=== PATIENT | female | born 1955 | race Caucasian/White ===

== ENCOUNTER 2020-07-25 13:52 | Outpatient (REF) | payer OTHER, SELFPAY ==
--- NOTE | 2020-07-25 | XR_ITS ---
EXAMINATION: 1. LEFT SHOULDER 2. LEFT HUMERUS CLINICAL INFORMATION: Shoulder pain. Arm pain. COMPARISON: None TECHNIQUE: 1. Left shoulder. 3 views 2. Left arm. 2 views FINDINGS: 1. Left shoulder. The glenohumeral joint and acromioclavicular joints are normal. No arthropathy. No soft tissue calcification. No fracture or dislocation. 2. Left arm. The humerus is normal. No fracture. No focal bone lesion or abnormal periosteal reaction. There is no soft tissue abnormality. IMPRESSION: 1. Left shoulder. Normal left shoulder. 2. Left arm. Normal left humerus.
== END 2020-07-25 13:53 | disposition home or self-care (01) ==
LOC: HO.HMGCX 13:52
PROVIDERS: PCP Orthopaedic Surgery; Visit Provider Nurse Practitioner Family
DX: M79.602 Pain in left arm (principal); M25.512 Pain in left shoulder
CPT/HCPCS: 73030; 73060

== ENCOUNTER 2020-08-01 16:12 | Outpatient (REF) | payer OTHER, SELFPAY ==
--- NOTE | 2020-08-01 16:38 | US_ITS ---
EXAMINATION: US VENOUS DUPLEX UPPER EXTREMITY, LEFT CLINICAL INFORMATION: Pain left arm. COMPARISON: None. TECHNIQUE: Routine grayscale, color and Doppler imaging of left upper extremity was performed. FINDINGS: There is normal color flow, Doppler visualized in left internal jugular, subclavian, axillary, brachial, basilic and cephalic veins. The radial vein is widely patent as well. The soft tissues are normal. IMPRESSION: No evidence of DVT left upper extremity.
== END 2020-08-01 16:13 | disposition home or self-care (01) ==
LOC: HO.US 16:12
PROVIDERS: PCP Orthopaedic Surgery; Visit Provider Nurse Practitioner Family
DX: M79.602 Pain in left arm (principal)
CPT/HCPCS: 93971

== ENCOUNTER 2020-08-16 14:00 | Outpatient (RCR) | payer OTHER, SELFPAY ==
--- NOTE | 2020-08-16 14:52 | MHC.PT.DC ---
[facility] [place] Office [place] Office [place] Office [address] Manny Canchola [address] [phone] F: [phone] F: [phone] F: [phone] F: [phone] Physical Therapy Discharge Report Diagnosis: Bicep tedinitis L Date of Surgery: NA Date of Evaluation: 06/05/20 Date of Discharge: 08/16/20 Treatments to Date: 11 Cancellations to Date: 0 No Shows to Date: 2 Discharge Status: Discharge Summary: Patient reporting that she feels better overall. She has some general achiness but otherwise demos improved tolerance of pain. She has a decent HEP to continue at home. I educated her to continue this to maintain results and follow up with MD as needed. Demos good ROM and strength but would benefit from continuing her HEP. DC to HEP at this time. Electronically signed by: Meera Romero PT Please sign and return to therapist. Thank you for your referral.
== END 2020-08-16 14:53 | disposition home or self-care (01) ==
LOC: HO.PTCHIC 14:00
PROVIDERS: PCP Internal Medicine; Visit Provider Nurse Practitioner Family
DX: M75.22 Bicipital tendinitis, left shoulder (principal)
CPT/HCPCS: 97110; 97140

== ENCOUNTER 2020-09-26 | Outpatient (REF) | payer OTHER, SELFPAY ==
--- NOTE | 2020-09-25 08:54 | HO.ANESPROP2 ---
HPI - Anesthesia Eval Consult details Narrative: 65yo F for Colonoscopy PMFSH Past Medical History Medical History Depression, major, recurrent Difficulty sleeping HLD (hyperlipidemia) Lipid disorder Tobacco abuse Family History Family History Father Myocardial infarction Mother Stomach cancer Son No problems noted. Daughter No problems noted. Daughter No problems noted. Surgical History Surgical History History of hysterectomy History of repair of laceration Hx of cholecystectomy Meds Allergies Allergy/AdvReac Type Severity Reaction Status Date / Time ciprofloxacin [From CIPRO] Allergy Intermediate HIVES Unverified 06/29/20 15:28 Home Medications Medication Instructions Recorded Confirmed Type cetirizine 5 mg-pseudoephedrine ER tab PO 07/08/20 09/13/20 History 120 mg tablet,extended release,12hr Exam Exam Date and Time: September 25, 2020 0854 Assessment and Plan Assessment Anesthesia Assessment: Chart Reviewed
[2020-09-25 12:26] VITALS: BMI 26.7
== END 2020-09-26 00:01 ==
LOC: CF
PROVIDERS: PCP Orthopaedic Surgery; Visit Provider Internal Medicine
DX: J44.9 Chronic obstructive pulmonary disease, unspecified (principal); F17.200 Nicotine dependence, unspecified, uncomplicated; Z79.899 Other long term (current) drug therapy
CPT/HCPCS: 99212

== ENCOUNTER → 2020-10-12 13:37 | Outpatient (BNVA) | payer OTHER, SELFPAY | PROVIDERS: Visit Provider Orthopaedic Surgery | DX: M75.52 Bursitis of left shoulder (principal) | CPT/HCPCS: 20610; 99202; J1100 ==

== ENCOUNTER 2020-10-17 13:43 | Outpatient (REF) | payer OTHER, SELFPAY ==
[2020-10-17 16:35] LABS: Basophils Absolute Auto 0.1 X10*3/uL (0.0-0.2); Basophils Percent Auto 0.6 % (0-2); Eosinophils Absolute Auto 0.2 X10*3/uL (0.0-0.4); Eosinophils Percent Auto 2.7 % (0-4); Hematocrit 41.5 % (37-47); Hemoglobin 13.5 g/dl (12.0-16.0); Imm Gran Abs Auto 0.02 X10*3/uL (0.00-0.03); Imm Gran Pct Auto 0.3 % (0.0-0.4); Lymphocytes Absolute Auto 3.4 X10*3/uL (1.2-4.9); Lymphocytes Percent Auto 43.6 % (20-40); Mean Corpuscular HGB Conc 32.5 g/dl (31.0-35.0); Mean Corpuscular Volume 95.4 fL (80-98); Mean Platelet Volume 11.5 fL (9.4-12.3); Monocytes Absolute Auto 0.5 X10*3/uL (0.1-1.2); Monocytes Percent Auto 6.7 % (2-11); Neutrophils Absolute Auto 3.6 X10*3/uL (2.0-8.3); Neutrophils Percent Auto 46.1 % (45-73); Platelet Count 287 X10*3/uL (160-400); Red Blood Count 4.35 X10*6/uL (4.20-5.50); Red Cell Distribution Width 12.2 % (11.0-16.0); White Blood Count 7.9 X10*3/uL (4.8-10.8)
[2020-10-17 16:38] LABS: MANUAL DIFF FLAG NO
[2020-10-17 16:55] LABS: Anion Gap 13 (12-20); Blood Urea Nitrogen 16 mg/dL (9-16); Calcium 8.9 mg/dL (8.4-10.2); Carbon Dioxide 28 mmol/L (22-29); Chloride 103 mmol/L (96-108); Cholesterol 203 mg/dL; Estimated Glomerular Filt Rate > 60; Glucose Fasting 83 mg/dL (60-99); HDL Cholesterol 73 mg/dL; LDL Cholesterol Calculated 111 mg/dl; Potassium 4.6 mmol/l (3.3-5.1); Sodium 139 mmol/L (135-145); Triglycerides 97 mg/dL
== END 2020-10-17 13:44 | disposition home or self-care (01) ==
LOC: HO.HMGCLDS 13:43
PROVIDERS: PCP Internal Medicine; Visit Provider Internal Medicine
DX: E78.9 Disorder of lipoprotein metabolism, unspecified (principal); F33.9 Major depressive disorder, recurrent, unspecified; G47.9 Sleep disorder, unspecified; Z72.0 Tobacco use
CPT/HCPCS: 36415; 80048; 80061; 85025

== ENCOUNTER 2020-12-12 14:13 | Outpatient (REF) | payer OTHER, SELFPAY | END 2020-12-12 14:14 | disposition home or self-care (01) | LOC: HO.HMGCLDS 14:13 | PROVIDERS: PCP Internal Medicine; Visit Provider Internal Medicine | DX: Z20.822 Contact with and (suspected) exposure to COVID-19 (principal) | CPT/HCPCS: 36415; U0003; U0005 ==

== ENCOUNTER → 2021-03-27 14:05 | Outpatient (BNVA) | payer OTHER, SELFPAY | PROVIDERS: PCP Internal Medicine; Visit Provider Internal Medicine | DX: J44.9 Chronic obstructive pulmonary disease, unspecified (principal); F17.200 Nicotine dependence, unspecified, uncomplicated | CPT/HCPCS: 99212 ==

== ENCOUNTER 2021-04-24 13:39 | Outpatient (REF) | payer OTHER, SELFPAY ==
--- NOTE | 2021-04-24 16:48 | PFT_ITS ---
FLOWS: FEV1 of 75% of predicted at 1.64 L. FVC 73% of predicted at 2.08 L. FEV1 to FVC ratio of 0.79. No bronchodilator response. LUNG VOLUMES: Total lung capacity 93% of predicted at 4.30 L. Residual volume 105% of predicted at 2.03 L. Slow vital capacity 84% of predicted at 2.27 L. Expiratory reserve volume 85% of predicted at 0.57 L. Diffusion capacity is mildly decreased. In comparison to pulmonary function test from May of 2019, FVC, FEV1, residual volume, slow vital capacity, and expiratory reserve volume have been without significant changes; total lung capacity has increased by 0.28 L; diffusion capacity has decreased by 2.94 mL/minute/mmHg. IMPRESSION: No obstructive or restrictive ventilatory defect. No bronchodilator response. Decreased diffusion capacity suggests emphysema. MD JERE Echevarria/MODL / [id number] MTDD
== END 2021-04-24 13:40 | disposition home or self-care (01) ==
LOC: HO.RESP 13:39
PROVIDERS: PCP Internal Medicine; Visit Provider Internal Medicine
DX: J44.9 Chronic obstructive pulmonary disease, unspecified (principal); F17.200 Nicotine dependence, unspecified, uncomplicated
CPT/HCPCS: 94060; 94727; 94729

== ENCOUNTER 2021-07-11 17:01 | Outpatient (REF) | payer OTHER, SELFPAY | END 2021-07-11 17:02 | disposition home or self-care (01) | LOC: HO.LNP 17:01 | PROVIDERS: Visit Provider Internal Medicine | DX: N30.90 Cystitis, unspecified without hematuria (principal) | CPT/HCPCS: 87086 ==

== ENCOUNTER 2021-08-20 12:42 | Outpatient (REF) | payer OTHER, SELFPAY ==
--- NOTE | ~2021-08-20 | MM_ITS ---
EXAMINATION: MM SCREENING DIGITAL BREAST TOMOSYNTHESIS, BILATERAL CLINICAL INFORMATION: Screening. Asymptomatic. The lifetime risk of breast cancer based on the Tyrer-Cuzick Model is 8%. COMPARISON: Mammography: 11/10/2019, 11/04/2018, 10/10/2017 TECHNIQUE: Digital breast tomosynthesis is performed in both the craniocaudal and mediolateral oblique views along with computer-aided detection (CAD). Synthesized 2D images are generated from the tomosynthesis. Additional left MLO view is provided. FINDINGS: There are scattered areas of fibroglandular density (ACR BI-RADS breast composition Category b). There are no significant masses, abnormal calcifications, or other abnormalities. Parenchymal pattern is similar to prior studies. No developing density. No significant changes. MM/MM tomosynthesis screening BI IMPRESSION: No mammographic evidence of malignancy. ASSESSMENT: BI-RADS 1: Negative RECOMMENDATION: Routine annual mammography screening. This patient's information was entered into a reminder system with a target due date for their next mammogram.
== END 2021-08-20 12:43 | disposition home or self-care (01) ==
LOC: HO.MAMMO 12:42
PROVIDERS: Visit Provider Internal Medicine
DX: Z12.31 Encounter for screening mammogram for malignant neoplasm of breast (principal)
CPT/HCPCS: 77063; 77067

== ENCOUNTER → 2021-09-24 13:58 | Outpatient (BNVA) | payer OTHER, SELFPAY | PROVIDERS: PCP Internal Medicine; Visit Provider Internal Medicine | DX: J44.9 Chronic obstructive pulmonary disease, unspecified (principal); F17.210 Nicotine dependence, cigarettes, uncomplicated | CPT/HCPCS: 99212 ==

== ENCOUNTER 2021-10-30 10:27 | Outpatient (REF) | payer OTHER, SELFPAY ==
--- NOTE | ~2021-10-30 | CT_ITS ---
EXAMINATION: CT CHEST SCREENING CLINICAL INFORMATION: Current smoker. 49 pack year history. COMPARISON: Previous chest CT most recent March 2020 TECHNIQUE: Multidetector volumetric CT imaging of the chest is performed without contrast using low dose technique. Additional 2D coronal and sagittal reformatted images and axial 3D maximum intensity projection (MIP) images are generated on the CT workstation. This CT examination was performed using dose optimization techniques as appropriate, variously including the following: *Automated exposure control *Adjustment of mA and/or kV according to patient size (this includes techniques or standardized protocols for targeted exams where dose is matched to indication/reason for exam; i.e. extremities or head) *Use of iterative reconstruction technique DLP: 50 mGy-cm FINDINGS: LUNGS: There is evidence of emphysema. There are several new semisolid or heterogeneous right upper lobe nodules measuring 3 mm axial image 92, axial image 105, axial image 110, axial image 139 series 5. There is a 3 mm peripheral or subpleural right upper lobe nodule axial image 111 series 5. The lungs are otherwise clear. MEDIASTINUM: There is mild coronary artery calcification. The mediastinum is otherwise normal. PLEURA: There is no pleural effusion. No pleural mass or thickening. AXILLA: No lymphadenopathy. UPPER ABDOMEN: The gallbladder has been removed. The liver may be low in attenuation. OSSEOUS STRUCTURES: Unremarkable. CT/CT lung screening IMPRESSION: Mild emphysema. Several new heterogeneous or semisolid 3 mm right upper lobe nodules. Represent an infectious or less laboratory process stable 3 mm peripheral right upper lobe nodule. Mild coronary artery calcification. ASSESSMENT: Lung-RADS category 2: Benign RECOMMENDATION: Annual low-dose chest CT follow-up recommended.
== END 2021-10-30 10:28 | disposition home or self-care (01) ==
LOC: HO.CT 10:27
PROVIDERS: Visit Provider Physician Assistant Medical
DX: Z12.2 Encounter for screening for malignant neoplasm of respiratory organs (principal); F17.210 Nicotine dependence, cigarettes, uncomplicated
CPT/HCPCS: 71271

== ENCOUNTER 2021-11-16 12:54 | Outpatient (REF) | payer OTHER, SELFPAY ==
[2021-11-16 13:46] LABS: MANUAL DIFF FLAG NO
[2021-11-16 13:51] LABS: Basophils Percent Auto 0.5 % (0-2); Eosinophils Absolute Auto 0.1 X10*3/uL (0.0-0.4); Eosinophils Percent Auto 1.3 % (0-4); Hematocrit 42.9 % (37.0-47.0); Imm Gran Abs Auto 0.02 X10*3/uL (0.00-0.03); Imm Gran Pct Auto 0.3 % (0.0-0.4); Lymphocytes Absolute Auto 2.2 X10*3/uL (1.2-4.9); Lymphocytes Percent Auto 29.8 % (20-40); Mean Corpuscular HGB Conc 32.6 g/dl (31.0-35.0); Mean Corpuscular Volume 94.9 fL (80.0-98.0); Mean Platelet Volume 11.1 fL (9.4-12.3); Monocytes Absolute Auto 0.5 X10*3/uL (0.1-1.2); Monocytes Percent Auto 6.8 % (2-11); Neutrophils Absolute Auto 4.6 x10*3/uL (2.0-8.3); Neutrophils Percent Auto 61.3 % (45-73); Platelet Count 326 X10*3/uL (160-400); Red Blood Count 4.52 X10*6/uL (4.20-5.50); Red Cell Distribution Width 12.8 % (11.0-16.0); White Blood Count 7.5 X10*3/uL (4.8-10.8)
[2021-11-16 14:15] LABS: Alanine Aminotransferase 26 U/L (0-31); Albumin Level 4.4 g/dL (3.5-5.0); Alkaline Phosphatase 72 U/L (39-117); Anion Gap 12 (12-20); Aspartate Amino Transferase 19 U/L (5-31); Bilirubin Total 0.3 mg/dL (0.0-1.0); Blood Urea Nitrogen 17 mg/dL (9-16); Calcium 9.7 mg/dL (8.4-10.2); Carbon Dioxide 30 mmol/L (22-29); Chloride 105 mmol/L (96-108); Estimated Glomerular Filt Rate 56; Glucose Random 78 mg/dL (60-115); Potassium 4.7 mmol/L (3.3-5.1); Sodium 142 mmol/L (135-145)
[2021-11-17 09:27] LABS: LDL Cholesterol Direct 179 mg/dL (<100)
== END 2021-11-16 12:55 | disposition home or self-care (01) ==
LOC: HO.HMGCLDS 12:54
PROVIDERS: PCP Internal Medicine; Visit Provider Internal Medicine
DX: Z00.01 Encounter for general adult medical examination with abnormal findings (principal); N32.9 Bladder disorder, unspecified; E78.9 Disorder of lipoprotein metabolism, unspecified; G47.9 Sleep disorder, unspecified; F33.9 Major depressive disorder, recurrent, unspecified; Z72.0 Tobacco use; Z91.09 Other allergy status, other than to drugs and biological substances
CPT/HCPCS: 36415; 80053; 83721; 85025

== ENCOUNTER → 2021-12-05 14:21 | Outpatient (BNVA) | payer OTHER, SELFPAY | PROVIDERS: PCP Internal Medicine; Referring Provider Internal Medicine; Visit Provider Physician Assistant | DX: Z12.11 Encounter for screening for malignant neoplasm of colon (principal); K21.9 Gastro-esophageal reflux disease without esophagitis; J44.9 Chronic obstructive pulmonary disease, unspecified; F17.210 Nicotine dependence, cigarettes, uncomplicated | CPT/HCPCS: 99202 ==

== ENCOUNTER → 2022-04-16 10:14 | Outpatient (BNVA) | payer MEDICAID, SELFPAY | PROVIDERS: PCP Internal Medicine; Visit Provider Internal Medicine | DX: J44.9 Chronic obstructive pulmonary disease, unspecified (principal); F17.210 Nicotine dependence, cigarettes, uncomplicated; Z79.899 Other long term (current) drug therapy | CPT/HCPCS: 99212 ==

== ENCOUNTER 2022-06-18 10:02 | Outpatient (REF) | payer OTHER, SELFPAY ==
[2022-06-18 11:17] LABS: Appearance Urine Clear; Color Urine Yellow; Glucose Urine UA Negative (Negative); Leukocyte Esterase Urine Trace (Negative); Nitrite Urine Positive (Negative); PH 5.5 (5.0-9.0); Urine Blood Moderate (2+) (Negative); Urine Ketones Negative (Negative); Urine Protein Negative (Neg-Trace)
[2022-06-18 11:20] LABS: Bacteria Urine 2+ (None Seen); Hyaline Casts Urine 0-2 /LPF (0-2); Squamous Epithelial Cell Urine 0-2 /HPF (0-2); UACC Culture Trigger YES
[2022-06-18 12:00] LABS: Alanine Aminotransferase 24 U/L (0-31); Albumin Level 4.3 g/dL (3.5-5.0); Alkaline Phosphatase 61 U/L (39-117); Anion Gap 15 (12-20); Aspartate Amino Transferase 19 U/L (5-31); Bilirubin Total 0.2 mg/dL (0.0-1.0); Blood Urea Nitrogen 19 mg/dL (9-16); Calcium 9.3 mg/dL (8.4-10.2); Carbon Dioxide 26 mmol/L (22-29); Chloride 105 mmol/L (96-108); Estimated Glomerular Filt Rate > 60; Glucose Random 72 mg/dL (60-115); Potassium 5.2 mmol/L (3.3-5.1); Sodium 141 mmol/L (135-145); Total Protein 6.9 g/dL (6.5-8.0)
== END 2022-06-18 10:03 | disposition home or self-care (01) ==
LOC: HO.HMGCLDS 10:02
PROVIDERS: PCP Internal Medicine; Visit Provider Internal Medicine
DX: E78.9 Disorder of lipoprotein metabolism, unspecified (principal); G47.9 Sleep disorder, unspecified; F33.9 Major depressive disorder, recurrent, unspecified; J44.9 Chronic obstructive pulmonary disease, unspecified; N32.9 Bladder disorder, unspecified
CPT/HCPCS: 36415; 80053; 81001; 87086; 87088; 87186

== ENCOUNTER 2022-11-12 07:28 | Outpatient (REF) | payer OTHER, SELFPAY ==
--- NOTE | ~2022-11-12 | CT_ITS ---
EXAMINATION: CT CHEST SCREENING CLINICAL INFORMATION: Nicotine dependence. COMPARISON: CT lung screening 10/30/2021, TECHNIQUE: Multidetector volumetric CT imaging of the chest is performed without contrast using low dose technique. Additional 2D coronal and sagittal reformatted images and axial 3D maximum intensity projection (MIP) images are generated on the CT workstation. This CT examination was performed using dose optimization techniques as appropriate, variously including the following: *Automated exposure control *Adjustment of mA and/or kV according to patient size (this includes techniques or standardized protocols for targeted exams where dose is matched to indication/reason for exam; i.e. extremities or head) *Use of iterative reconstruction technique DLP: 48 mGy-cm FINDINGS: LUNGS: There is mild centrilobular emphysema. Previously seen several semisolid nodules right upper lobe have resolved and are not seen. A 1 mm nodule right upper lobe posteriorly image 39/9 is stable. MEDIASTINUM: The thyroid lobes are symmetrical. The central trachea and the bronchi are widely patent. Heart size and the great vessels are normal caliber. No coronary artery calcifications seen. There is no pericardial effusion. CORONARY ARTERY CALCIFICATION: There are mild coronary artery calcifications present. PLEURA: There is no pleural effusion. No pleural mass or thickening. AXILLA: No lymphadenopathy. UPPER ABDOMEN: Visualized liver, spleen, pancreas and bilateral adrenal glands are unremarkable. Gallbladder has been surgically removed. OSSEOUS STRUCTURES: No aggressive lytic or sclerotic process seen. CT/CT lung screening IMPRESSION: Most of the right upper lobe nodules seen previously have resolved except for a punctate 1 mm nodule which appears stable. ASSESSMENT: Lung-RADS category 2, benign. RECOMMENDATION: Low-dose annual CT chest.
== END 2022-11-12 07:29 | disposition home or self-care (01) ==
LOC: HO.CT 07:28
PROVIDERS: Visit Provider Physician Assistant Medical
DX: Z12.2 Encounter for screening for malignant neoplasm of respiratory organs (principal); F17.210 Nicotine dependence, cigarettes, uncomplicated
CPT/HCPCS: 71271

== ENCOUNTER → 2022-11-19 13:27 | Outpatient (BNVA) | payer OTHER, SELFPAY | PROVIDERS: PCP Internal Medicine; Visit Provider Internal Medicine | DX: J44.9 Chronic obstructive pulmonary disease, unspecified (principal); F17.210 Nicotine dependence, cigarettes, uncomplicated | CPT/HCPCS: 99212 ==

== ENCOUNTER 2022-12-31 12:02 | Outpatient (REF) | payer OTHER, SELFPAY ==
--- NOTE | ~2022-12-31 | MM_ITS ---
EXAMINATION: MM SCREENING DIGITAL BREAST TOMOSYNTHESIS, BILATERAL CLINICAL INFORMATION: Screening. Asymptomatic. The lifetime risk of breast cancer based on the Tyrer-Cuzick Model is 6%. COMPARISON: Mammography: 08/20/2021, 11/10/2019, 11/04/2018 TECHNIQUE: Digital breast tomosynthesis is performed in both the craniocaudal and mediolateral oblique views along with computer-aided detection (CAD). Synthesized 2D images are generated from the tomosynthesis. FINDINGS: The breasts are almost entirely fatty (ACR BI-RADS breast composition Category a). There are no significant masses, abnormal calcifications, or other abnormalities. Background stromal and fibroglandular markings are unremarkable. No architectural abnormality or developing density or significant change from prior studies. No axillary adenopathy. Skin contours are smooth. MM/MM tomosynthesis screening BI IMPRESSION: No mammographic evidence of malignancy. ASSESSMENT: BI-RADS 1: Negative RECOMMENDATION: Routine annual mammography screening. This patient's information was entered into a reminder system with a target due date for their next mammogram.
== END 2022-12-31 12:03 | disposition home or self-care (01) ==
LOC: HO.MAMMO 12:02
PROVIDERS: PCP Internal Medicine; Visit Provider Internal Medicine
DX: Z12.31 Encounter for screening mammogram for malignant neoplasm of breast (principal)
CPT/HCPCS: 77063; 77067

== ENCOUNTER 2023-05-26 13:30 | Outpatient (AMB) | payer OTHER, SELFPAY ==
--- NOTE | 2023-05-26 13:42 | A.OFFVIS_ITS ---
Intake Vital Signs 05/26/23 13:43 Height 5 ft 1 in Weight 157 lb BMI 29.7 BP 102/60 Blood Pressure Location Lt brachial Position Sitting Pulse 82 Pulse Source Pulse Oximeter Pulse Oximetry (%) 95 Oxygen Delivery Method Room Air Intake Visit Reasons: COPD Intake Note: pt is here for follow up and is still coughing and is now bringing up mucous. Customer Service Associate Required: No Allergies ciprofloxacin [From CIPRO] Allergy (Intermediate, Verified 05/26/23 13:54) HIVES Medication List - Last Reconciled 05/26/23 by Mia Harmon MD atorvastatin 80 mg PO DAILY 90 days bisacodyl (Dulcolax (bisacodyl)) 10 mg (2 x 5 mg) PO ONCE 1 day cetirizine (Zyrtec) 10 mg PO DAILY 90 days fluticasone propionate 110 mcg/actuation (Flovent HFA) 2 puffs inhalation BID 30 days meloxicam 15 mg (2 x 7.5 mg) PO DAILY omeprazole 20 mg PO DAILY 90 days salmeterol (Serevent Diskus) 1 inh inhalation BID 30 days tolterodine (Detrol) 2 mg PO BEDTIME 90 days trazodone 50 mg PO BEDTIME PRN 90 days Do you need a note to return to daycare/school/sports/work: No HPI COPD HPI Details This 68 years old very pleasant, female a hard core smoker, comes after 6 months for her .routine follow-up. She does get short of breath if min she walks up hill or climbs stairs but has remained very stable without any worsening. The cough is definitely related to smoking. Continues to smoke up to 1 pack a day, she says that enjoys smoking and finds it very difficult to go without cigarettes , thus she has no motivation to quit. She does participate in annual lung screening program. [facility] Medical History (Updated 05/26/23 @ 16:53 by Mia Harmon MD) Allergic rhinitis COPD (chronic obstructive pulmonary disease) Cough Depression, major, recurrent Difficulty sleeping HLD (hyperlipidemia) Lipid disorder Shoulder pain, left Smoker Tobacco abuse Surgical History History of hysterectomy History of repair of laceration Hx of cholecystectomy Hx of colonoscopy Family History Father Myocardial infarction Mother Stomach cancer Son No problems noted. Daughter No problems noted. Daughter No problems noted. 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 Cognitive needs: No Hearing needs: No Vision needs: No Review of Systems Const All systems reviewed & are unremarkable except as noted in HPI and below Eyes Reports no additional complaints ENT Reports no additional complaints Card Denies chest pain, Denies irregular heart rhythm and Denies leg edema Resp Reports as per HPI GI Reports heartburn (Intermittent, controlled with omeprazole) Reports no additional complaints Musc Reports no additional complaints Skin/Breast Reports system reviewed and no additional complaints, except as documented Neuro Reports no additional complaints Psych Reports no additional complaints Physical Exam Vital Signs: Last Vital Signs Pulse 82 05/26/23 13:43 BP 102/60 05/26/23 13:43 Pulse Ox 95 05/26/23 13:43 Oxygen Delivery Method Room Air 05/26/23 13:43 BMI result Body Mass Index 29.7 Const General: healthy appearing, comfortable, no acute distress, alert and awake Orientation/consciousness: patient oriented x3 HEENT Head: Yes normal to inspection General nose exam: No nasal polyps present and No nasal discharge present Face and sinus: Yes sinuses nontender Mouth: oropharynx normal Throat: Yes posterior oropharynx normal Eyes General: appearance normal, both eyes and all related structures Neck Neck: Yes normal visual inspection, Yes no lymphadenopathy, Yes trachea midline and Yes no JVD Thyroid: Thyroid normal Chest Chest palpation & inspection: normal inspection of the chest, normal palpation of entire chest wall and no tenderness Resp Other: Percussion note resonant, has good breath sounds on both sides, no wheezes rhonchi or crepitations are heard. Cardio Palpation: normal PMI Rate: regular rate Rhythm: regular rhythm Heart sounds: no gallops and no murmurs GI Palpation (GI): Soft to palpation, nontender, No hepatosplenomegaly present and no masses Auscultation: normal bowel sounds Back/Spine/Pelvis Thoracic/Lumbar Spine: thoracic and lumbar spine normal to inspection Skin General skin exam: no rashes or lesions noted Neuro General: patient oriented x3 and no focal motor deficits Cranial nerves: Yes CN's II-XII intact bilaterally Extrem General: Yes normal to inspection, Yes no clubbing, cyanosis or edema and Yes no calf tenderness Psych Appearance: grossly normal and well kempt Speech and movement: Normal speech and movement present Office Procedures Spirometry Testing Spirometry Comments: Spirometry done in the office, Dr. Harmon has the results results scanned to her chart. 55755- Spirometry Results Reviewed Results Reviewed: SPIROMETRY : FVC= 76 % FEV1=76 % FEF 25-75 = 65 % Assessment & Plan Assessment & Plan (1) COPD (chronic obstructive pulmonary disease): Comment: SHE DOES HAVE CHRONIC OBSTRUCTIVE PULMONARY DISEASE, DEFINITELY RELATED TO SMOKING. CLINICALLY STABLE AND CONTROLLED. TX : FLOVENT - 1102 PUFFS B.I.D. SEREVENT-50 1 INHALATION B.I.D. ALBUTEROL HFA 2 PUFFS Q 4-6 HOURS P.R.N. Code(s): J44.9 - Chronic obstructive pulmonary disease, unspecified (2) Smoker: Comment: PATIENT CONTINUES TO SMOKE 1 PACK OF CIGARETTES A DAY. ONCE AGAIN I DISCUSSED WITH HER , IN DETAIL AND RECOMMEND THAT SHE SHOULD QUIT COMPLETELY. INFORMATION ABOUT QUIT SMOKING PROGRAM PROVIDED . PATIENT DOES NOT HAVE ANY INTENTION TO QUIT. * PATIENT IS PARTICIPATING IN ANNUAL LUNG SCREENING PROGRAM, Code(s): F17.200 - Nicotine dependence, unspecified, uncomplicated (3) Cough: Comment: HER COUGH IS DEFINITELY RELATED TO HER ONGOING SMOKING. TALKED ABOUT QUITTING SMOKING. MAY USE MUCINEX 400 OR 600 MG B.I.D.. ALSO ADVISED TO USE THE HUMIDIFIER IN THE HOUSE DURING WINTER MONTHS. Code(s): R05.9 - Cough, unspecified (4) Allergic rhinitis: Comment: CHRONIC ALLERGIC RHINITIS, AROUND THE YEAR, TX: FLONASE 50 2 SPRAY EACH NOSTRIL DAILY Code(s): J30.9 - Allergic rhinitis, unspecified Orders: Orders AMB Spirometry Testing Today J44.9 - Chronic obstructive pulmonary disease, unspecified Medications: New fluticasone propionate 50 mcg/actuation (Flonase Allergy Relief) administer into each nostril 2 sprays intranasal DAILY 16 grams 5RF ALLERGIC RHINITIS 30 days Refilled fluticasone propionate 110 mcg/actuation (Flovent HFA) administer with spacer 2 puffs inhalation BID 12 grams 5RF COPD 30 days salmeterol (Serevent Diskus) 1 inh inhalation BID 60 ea 5RF COPD 30 days Coding Level of Care Code Est Pt Level 3 (97350) Diagnoses COPD (chronic obstructive pulmonary disease) J44.9 Smoker F17.200 Cough R05.9 Allergic rhinitis J30.9 CPT Codes Spirometry - CPT: 56625- Spirometry ([id number])
[2023-05-26 13:43] VITALS: BP 102/60; PULSE 82; O2SAT 95; BMI 29.7
== END 2023-05-26 14:15 | disposition home or self-care (01) ==
PROVIDERS: PCP Internal Medicine; Visit Provider Internal Medicine
DX: J44.9 Chronic obstructive pulmonary disease, unspecified (principal); F17.200 Nicotine dependence, unspecified, uncomplicated; R05.9 Cough, unspecified; J30.9 Allergic rhinitis, unspecified
CPT/HCPCS: 94010; 99213

== ENCOUNTER → 2023-05-26 13:30 | Outpatient (BNVA) | payer OTHER, SELFPAY | PROVIDERS: PCP Internal Medicine; Visit Provider Internal Medicine | DX: J44.9 Chronic obstructive pulmonary disease, unspecified (principal); R05.9 Cough, unspecified; F17.200 Nicotine dependence, unspecified, uncomplicated | CPT/HCPCS: 94010; 99212 ==

== ENCOUNTER 2023-06-06 05:26 | Outpatient (REF) | payer OTHER, SELFPAY | END 2023-06-06 05:27 | disposition home or self-care (01) | LOC: HO.HOSX 05:26 | PROVIDERS: Visit Provider Physician Assistant | DX: Z13.89 Encounter for screening for other disorder (principal) ==

== ENCOUNTER 2023-06-06 10:29 | Outpatient (AMB) | payer OTHER, SELFPAY ==
[2023-06-06 10:49] VITALS: BMI 29.7
--- NOTE | 2023-06-06 10:49 | A.OFFVIS_ITS ---
Intake Vital Signs 06/06/23 10:49 Height 5 ft 1 in Weight 157 lb BMI 29.7 Intake Visit Reasons: FC, inj 05/12/23 R hand ring finger injury Intake Note: Cristela 68 yr old right hamd dominant female, presents today for her right hand ring finger injury from 05/12/23. States while at home she was setting up folding chairs, she fell and finger was crushed in between the chair. Seen at urgent care where xrays were taken and finger was splinted. Currently states swelling has improved but she cont's to have pain and increase swelling after using hand. States she removed her finger splint due to increase pain while using it. States she only has numbness in her ring finger at times. Allergies ciprofloxacin [From CIPRO] Allergy (Intermediate, Verified 06/06/23 10:50) HIVES HPI FC, inj 05/12/23 R hand ring finger injury HPI Details 68-year-old right hand dominant female who presents in the office today for an evaluation of right hand pain. The patient reports injuring the right ring finger on 05/12/2023 status post sitting on a folded chair at home when she fell and the chair closed on her finger. She was seen at Urgent Care where x- rays were obtained and her finger was placed in a splint. She reports the edema has improved, but she continues to have pain. She states she has increased edema with the use of her hand. She states she removed the splint due to increased pain. She confirms some numbness in the ring finger intermittently. She states Urgent Care placed a splint on the tip of the finger and wrapped it. 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 [facility] Medical History (Updated 06/06/23 @ 11:02 by Lupe Zeng) Allergic rhinitis COPD (chronic obstructive pulmonary disease) Cough Depression, major, recurrent Difficulty sleeping HLD (hyperlipidemia) Lipid disorder Shoulder pain, left Smoker Tobacco abuse Surgical History History of hysterectomy History of repair of laceration Hx of cholecystectomy Hx of colonoscopy Family History Father Myocardial infarction Mother Stomach cancer Son No problems noted. Daughter No problems noted. Daughter No problems noted. 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 Cognitive needs: No Hearing needs: No Vision needs: No Review of Systems Const All systems reviewed & are unremarkable except as noted in HPI and below Physical Exam Vital Signs: BMI result Body Mass Index 29.7 Const General: cooperative and no acute distress Orientation/consciousness: patient oriented x3 Resp Effort & Inspection: normal respiratory effort and able to speak in complete sentences Cardio Peripheral pulses: Peripheral pulses 2+ throughout Skin General skin exam: no rashes or lesions noted Neuro General: patient oriented x3 Extrem Other: Right hand: Mallet finger at the DIP of the ring finger. Able to perform full finger flexion, extension, abduction, adduction, finger cross, okay sign, and thumbs up without deficit. Able to make a closed fist. Sensation intact. Capillary refill is brisk. Radial pulse intact. Assessment & Plan Assessment & Plan (1) Mallet deformity of right ring finger: Code(s): M20.011 - Mallet finger of right finger(s) Plan Ms. Oro is a 68-year-old right hand dominant female who presents in the office today for an evaluation of right hand pain. The patient reports injuring the right ring finger on 05/12/2023 status post sitting on a folded chair at home when she fell and the chair closed on her finger. She was seen at Urgent Care where x-rays were obtained and her finger was placed in a splint. She reports the edema has improved, but she continues to have pain. She states she has increased edema with the use of her hand. She states she removed the splint due to increased pain. She confirms some numbness in the ring finger intermittently. She states Urgent Care placed a splint on the tip of the finger and wrapped it. 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 I instructed her that if the splint falls off she has to start the 8 weeks over. She was placed in a mallet finger splint, off the shelf, while in the office today; to immobilize the DIP and leaving the PIP and CMC in motion. She was given a work note stating the injury occurred on 05/12/2023. She was seen in the office today, 06/06/2023. She is unable to use her right upper extremity while working. Follow up will be in 3 weeks, or sooner if needed. X-rays of the right hand obtained at [facility] Care on 05/12/2023 revealed no evidence of acute fracture or dislocation. Orders: Orders XR hand RT min 3V Today M79.643 - Pain in unspecified hand Patient Instructions: Scribed for Rochelle Angeles PA-C by Lupe Zeng medical care administrator, on 06/06/2023 at 10:40 am, EST. Coding Level of Care Code New Pt Level 3 (64200) Diagnoses Mallet deformity of right ring finger M20.011
== END 2023-06-06 11:30 | disposition home or self-care (01) ==
PROVIDERS: PCP Internal Medicine; Visit Provider Physician Assistant
DX: M20.011 Mallet finger of right finger(s) (principal)
CPT/HCPCS: 99213

== ENCOUNTER 2023-07-04 13:09 | Outpatient (AMB) | payer OTHER, SELFPAY ==
--- NOTE | 2023-07-04 13:14 | A.OFFVIS_ITS ---
Intake Vital Signs 07/04/23 13:17 Height 5 ft 1 in Weight 157 lb BMI 29.7 Intake Visit Reasons: ov-inj 05/12/23 R hand ring finger injury Intake Note: Cristela 68 yr old female presents today for her follow up visit for her Mallet deformity of right ring finger from 05/12/23. States she has worn her finger splint as directed. States she has tender and stiffness in finger due to splint. Allergies ciprofloxacin [From CIPRO] Allergy (Intermediate, Verified 07/04/23 13:17) HIVES HPI ov-inj 05/12/23 R hand ring finger injury HPI Details 68-year-old right hand dominant female jaydon yates presents in the office today for a follow up of right 4th digit mallet deformity. Her injury occurred on 05/12/2023 status post sitting on a folded chair at home when she fell and the chair closed on her finger. The patient confirms she has worn the splint as directed. She reports tenderness and stiffness in the finger due to splint. 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 [facility] Medical History (Updated 06/06/23 @ 11:02 by Lupe Zeng) Allergic rhinitis Cough Shoulder pain, left COPD (chronic obstructive pulmonary disease) Smoker Tobacco abuse Difficulty sleeping Depression, major, recurrent Lipid disorder HLD (hyperlipidemia) Surgical History Hx of colonoscopy History of repair of laceration History of hysterectomy Hx of cholecystectomy Family History Father Myocardial infarction Mother Stomach cancer Son No problems noted. Daughter No problems noted. Daughter No problems noted. 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 Able to perform full finger flexion, extension, abduction, adduction, finger cross, okay sign, and thumbs up without deficit. Able to make a closed fist. Sensation intact. Capillary refill is brisk. Radial pulse intact. Assessment & Plan Assessment & Plan (1) Mallet deformity of right ring finger: Code(s): M20.011 - Mallet finger of right finger(s) Plan Ms. Oro is a 68-year-old right hand dominant female who presents in the office today for a follow up of right 4th digit mallet deformity. Her injury occurred on 05/12/2023 status post sitting on a folded chair at home when she fell and the chair closed on her finger. The patient confirms she has worn the splint as directed. She reports tenderness and stiffness in the finger due to splint. 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 The patient will remain in the splint for 2 more weeks. She was given a new mallet finger splint, off the shelf, while in the office today. I placed a referral for occupational therapy to begin in 2 weeks to work on ROM. She inquired about being able to work and was educated that she is able to work as long as she is in the splint for the next two weeks. Follow up will be in 4 weeks, or sooner if needed. Patient Instructions: Scribed for Rochelle Angeles PA-C by Lupe Zeng medical sales specialist, on 07/04/2023 at 1:11 pm, EST. Coding Level of Care Code Est Pt Level 3 (67024) Diagnoses Mallet deformity of right ring finger M20.011
[2023-07-04 13:17] VITALS: BMI 29.7
== END 2023-07-04 13:49 | disposition home or self-care (01) ==
PROVIDERS: PCP Internal Medicine; Visit Provider Physician Assistant
DX: M20.011 Mallet finger of right finger(s) (principal)
CPT/HCPCS: 99213

== ENCOUNTER → 2023-07-04 13:09 | Outpatient (BNVA) | payer OTHER, SELFPAY | PROVIDERS: PCP Internal Medicine; Visit Provider Physician Assistant | DX: M20.011 Mallet finger of right finger(s) (principal) | CPT/HCPCS: 99212 ==

== ENCOUNTER 2023-08-01 12:25 | Outpatient (AMB) | payer OTHER, SELFPAY ==
--- NOTE | 2023-08-01 12:26 | A.OFFVIS_ITS ---
Intake Vital Signs 08/01/23 12:27 Height 5 ft 1 in Weight 157 lb BMI 29.7 Intake Visit Reasons: ov-inj 05/12/23 R hand ring finger injury Intake Note: Cristela is a 68 year old right hand dominant female who presents today for her follow up visit for her Mallet deformity of right ring finger from 05/12/23. States. She was instructed that she may return to work if she continues use of splint, and was also referred to OT. Patient reports that she has not yet started OT as they were unable to book her until friday08/04/23. She has returned to work wearing the splint. Wearing the splint at work interferes with her job at times. No additional conerns at this time. Allergies ciprofloxacin [From CIPRO] Allergy (Intermediate, Verified 07/04/23 13:17) HIVES HPI ov-inj 05/12/23 R hand ring finger injury HPI Details 68-year-old right hand dominant female jaydon yates presents in the office today for a follow up of right 4th digit mallet deformity. Her injury occurred on status post sitting on a folded chair at home when she fell and the chair closed on her finger. The patient reports she was instructed she may return to work if she could wear the splint. She confirms she has returned to work and has been wearing the splint like instructed. She states wearing the splint at work interference with her job at times. She was also referred to occupational therapy. However, she reports she has not yet began occupational therapy at this time, stating they were unable to schedule her until Friday08/04/2023. She expresses no additional concerns while in the office today. [facility] Medical History (Updated 06/06/23 @ 11:02 by Lupe Zeng) Allergic rhinitis Cough Shoulder pain, left COPD (chronic obstructive pulmonary disease) Smoker Tobacco abuse Difficulty sleeping Depression, major, recurrent Lipid disorder HLD (hyperlipidemia) Surgical History Hx of colonoscopy History of repair of laceration History of hysterectomy Hx of cholecystectomy Family History Father Myocardial infarction Mother Stomach cancer Son No problems noted. Daughter No problems noted. Daughter No problems noted. 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 Cognitive needs: No Hearing needs: No Vision needs: No Review of Systems Const All systems reviewed & are unremarkable except as noted in HPI and below Physical Exam Vital Signs: BMI result Body Mass Index 29.7 Const General: cooperative, healthy appearing and no acute distress Resp Effort & Inspection: normal respiratory effort and able to speak in complete sentences Cardio Rate: regular rate Peripheral pulses: Peripheral pulses 2+ throughout GI Palpation (GI): Soft to palpation Skin Lesions: no lesions Rashes: no rashes Extrem Other: Right hand: Mallet finger at the DIP of the ring finger has resolved. Stiffness at the DIP and PIP ring finger. Lacking 3cm from a closed fist with the ring finger. Sensation intact. Capillary refill is brisk. Radial pulse intact. Assessment & Plan Assessment & Plan (1) Mallet deformity of right ring finger: Code(s): M20.011 - Mallet finger of right finger(s) Plan Ms. Oro is a 68-year-old right hand dominant female who presents in the office today for a follow up of right 4th digit mallet deformity. Her injury occurred on 05/12/2023 status post sitting on a folded chair at home when she fell and the chair closed on her finger. The patient reports she was instructed she may return to work if she could wear the splint. She confirms she has returned to work and has been wearing the splint like instructed. She states wearing the splint at work interference with her job at times. She was also referred to occupational therapy. However, she reports she has not yet began occupational therapy at this time, stating they were unable to schedule her until Friday08/04/2023. She expresses no additional concerns while in the office today. The patient will attend occupational therapy, which her first session is Friday08/04/2023 where she will work on ROM. She may discontinue the use of the finger splint at this time. Follow up will be in 4 weeks, or sooner if needed. Patient Instructions: Scribed for Rochelle Angeles PA-C by Lupe Zeng medical records field technician, on 08/01/2023 at 12:28 pm, EST. Coding Level of Care Code Est Pt Level 3 (35760) Diagnoses Mallet deformity of right ring finger M20.011
[2023-08-01 12:27] VITALS: BMI 29.7
== END 2023-08-01 12:46 | disposition home or self-care (01) ==
PROVIDERS: PCP Internal Medicine; Visit Provider Physician Assistant
DX: M20.011 Mallet finger of right finger(s) (principal)
CPT/HCPCS: 99213

== ENCOUNTER → 2023-08-01 12:25 | Outpatient (BNVA) | payer OTHER, SELFPAY | PROVIDERS: PCP Internal Medicine; Visit Provider Physician Assistant | DX: M20.011 Mallet finger of right finger(s) (principal) | CPT/HCPCS: 99212 ==

== ENCOUNTER 2023-08-18 13:30 | Outpatient (RCR) | payer OTHER, SELFPAY ==
--- NOTE | 2023-08-05 12:19 | MHC.OT.EP ---
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 Pt has been avoiding use with all activities and will benefit from a short course of OT to regain right hand ROM, strength and function Frequency and Duration: The patient will be seen 1x wk x 3 wks Short Term Goals: Demo indep with HEP Right ring PIP jt flexion to 95 deg Right ring finger tip to DPC Right teacher assistant to 30 lb Report mild difficulty with writing , carrying groceries and house work due to right ring finger Belly Roller Goals: Same as above Treatment Plan: Therapeutic Exercise Therapeutic Activity Home Exercise Program Patient Education Paraffin Fluidotherapy Electronically Signed By: Nu Logan OT CHT CLT Please Sign and return to therapist. Thank you once again for your referral.
--- NOTE | 2023-08-18 14:16 | MHC.OT.DC ---
[address] [phone] F: [phone] Occupational Therapy Discharge Note Patient Name: Cristela Oro Provider: Rochelle Angeles Diagnosis: Mallet finger Date of Surgery: Date of Evaluation: 08/05/23 Date of Discharge: Treatments to Date: 2 Cancellations to Date: No Shows to Date: Discharge Status: Achieved Goals Improved Function Independent with HEP Discharge Summary: Increase in digit flexion to DPC without loss of DIP jt extension maintaining at 15 deg. Goals met for ROM, Brush Clearing Laborer strength and right hand function. Pt reports mild difficulty with daily activities with some pain opening tight jar lids and heavy housework Goals met. Electronically Signed By: Nu Logan OT CHT CLT Reviewed/agree with student documentation: Therapist: Please Sign and return to therapist, thank you for your referral.
== END 2023-08-18 14:17 ==
LOC: HO.OT 13:30
PROVIDERS: PCP Internal Medicine; Visit Provider Physician Assistant
DX: M20.011 Mallet finger of right finger(s) (principal)
CPT/HCPCS: 97110; 97165

== ENCOUNTER 2023-09-02 12:52 | Outpatient (AMB) | payer OTHER, SELFPAY ==
--- NOTE | 2023-09-02 12:57 | MHC.OFFVIS ---
Intake Intake Visit Reasons: OV - Rt ring finger, DOI 05/12/23 Intake Note: Cristela is a 68 year old right hand dominant female who presents today for a follow up of her ring finger, DOI 05/12/23. Patient reports having pain on her first knuckle. She states that her finger tends to hurt when she makes any sudden movement. Allergies ciprofloxacin [From CIPRO] Allergy (Intermediate, Verified 09/02/23 12:59) HIVES HPI OV - Rt ring finger, DOI 05/12/23 HPI Details 68-year-old right hand dominant female who presents in the office today for a follow up of right 4th digit mallet deformity. Her injury occurred on 05/12/2023 status post sitting on a folded chair at home when she fell and the chair closed on her finger. The patient reports having pain in the first knuckle and tends to hurt when she makes any sudden movements. [facility] Medical History (Updated 06/06/23 @ 11:02 by Lupe Zeng) Allergic rhinitis Cough Shoulder pain, left COPD (chronic obstructive pulmonary disease) Smoker Tobacco abuse Difficulty sleeping Depression, major, recurrent Lipid disorder HLD (hyperlipidemia) Surgical History Hx of colonoscopy History of repair of laceration History of hysterectomy Hx of cholecystectomy Family History Father Myocardial infarction Mother Stomach cancer Son No problems noted. Daughter No problems noted. Daughter No problems noted. 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 Stiffness at the DIP and PIP ring finger. Lacking 3cm from a closed fist with the ring finger. Sensation intact. Capillary refill is brisk. Radial pulse intact. Assessment & Plan Assessment & Plan (1) Mallet deformity of right ring finger: Code(s): M20.011 - Mallet finger of right finger(s) Plan Ms. Oro is a 68-year-old right hand dominant female who presents in the office today for a follow up of right 4th digit mallet deformity. Her injury occurred on 05/12/2023 status post sitting on a folded chair at home when she fell and the chair closed on her finger. She reports that she still has noticed that her finger is slightly flexed. She reports that she attended occupational therapy and worked on exercises that she is now able to make a full fist. Although not ideal, the patient is content with the ~10 degrees of flexion at the DIP. I did offer to place another order for occupational therapy. However, the patient declined at this time. Follow up will be PRN, or sooner if needed. Patient Instructions: Scribed for Rochelle Angeles PA-C by Lupe Zeng director medical writing, on 09/02/2023 at 12:54 pm, EST. Coding Level of Care Code Est Pt Level 3 (17003) Diagnoses Mallet deformity of right ring finger M20.011
== END 2023-09-02 13:08 | disposition home or self-care (01) ==
PROVIDERS: PCP Internal Medicine; Visit Provider Physician Assistant
DX: M20.011 Mallet finger of right finger(s) (principal)
CPT/HCPCS: 99213

== ENCOUNTER → 2023-09-02 12:52 | Outpatient (BNVA) | payer OTHER, SELFPAY | PROVIDERS: PCP Internal Medicine; Visit Provider Physician Assistant | DX: M20.011 Mallet finger of right finger(s) (principal) | CPT/HCPCS: 99212 ==

== ENCOUNTER 2023-09-22 14:36 | Outpatient (AMB) | payer OTHER, SELFPAY ==
--- NOTE | 2023-09-22 14:45 | A.OFFVIS_ITS ---
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 Required: No Allergies ciprofloxacin [From CIPRO] Allergy (Intermediate, Verified 09/22/23 15:09) HIVES Medication List - Last Reconciled 09/22/23 by Mia Harmon MD atorvastatin 80 mg PO DAILY 90 days bisacodyl (Dulcolax (bisacodyl)) 10 mg (2 x 5 mg) PO ONCE 1 day cetirizine (Zyrtec) 10 mg PO DAILY 90 days fluticasone propionate 110 mcg/actuation (Flovent HFA) 2 puffs inhalation BID 30 days fluticasone propionate 50 mcg/actuation (Flonase Allergy Relief) 2 sprays intranasal DAILY 30 days omeprazole 20 mg PO DAILY 90 days salmeterol (Serevent Diskus) 1 inh inhalation BID 30 days tolterodine (Detrol) 2 mg PO BEDTIME 90 days trazodone 50 mg PO BEDTIME PRN 90 days Do you need a note to return to daycare/school/sports/work: No HPI Bronchitis HPI Details 68 YEARS OLD FEMALE A HARD CORE SMOKER, COMES FOR FOLLOW-UP AFTER 4 MONTHS. CONTINUES TO COUGH VERY FREQUENTLY WITH ONLY SMALL AMOUNT OF PHLEGM OFF AND ON. SHE SHE CAN WALK AROUND WITH MINIMAL SHORTNESS OF BREATH. SHE SLEEPS WELL. MAIN COMPLAINT IS FREQUENT COUGH WHICH IS DEFINITELY RELATED TO HER SMOKING. SMOKES ABOUT 1 PACK OF CIGARETTES A DAY. FINDS IT VERY HARD TO CUT DOWN THE CIGARETTES. SHE KNOWS THE RISKS OF CONTINUED SMOKING. SHE IS IN ANNUAL LUNG SCREENING PROGRAM. [facility] Medical History Allergic rhinitis Cough Shoulder pain, left COPD (chronic obstructive pulmonary disease) Smoker Tobacco abuse Difficulty sleeping Depression, major, recurrent Lipid disorder HLD (hyperlipidemia) Surgical History Hx of colonoscopy History of repair of laceration History of hysterectomy Hx of cholecystectomy Family History Father Myocardial infarction Mother Stomach cancer Son No problems noted. Daughter No problems noted. Daughter No problems noted. 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 Cognitive needs: No Hearing needs: No Vision needs: No Review of Systems Const All systems reviewed & are unremarkable except as noted in HPI and below Eyes Reports no additional complaints ENT Reports no additional complaints Card Denies chest pain, Denies irregular heart rhythm and Denies leg edema Resp Reports as per HPI GI Reports heartburn (Intermittent, controlled with omeprazole) Reports no additional complaints Musc Reports no additional complaints Skin/Breast Reports system reviewed and no additional complaints, except as documented Neuro Reports no additional complaints Psych Reports no additional complaints Physical Exam Vital Signs: Last Vital Signs Pulse 73 09/22/23 14:48 BP 120/70 09/22/23 14:48 Pulse Ox 98 09/22/23 14:48 Oxygen Delivery Method Room Air 09/22/23 14:48 BMI result Body Mass Index 26.3 Const General: healthy appearing, comfortable, no acute distress, alert and awake Orientation/consciousness: patient oriented x3 HEENT Head: Yes normal to inspection General nose exam: No nasal polyps present and No nasal discharge present Face and sinus: Yes sinuses nontender Mouth: oropharynx normal Throat: Yes posterior oropharynx normal Eyes General: appearance normal, both eyes and all related structures Neck Neck: Yes normal visual inspection, Yes no lymphadenopathy, Yes trachea midline and Yes no JVD Thyroid: Thyroid normal Chest Chest palpation & inspection: normal inspection of the chest, normal palpation of entire chest wall and no tenderness Resp Other: Percussion note resonant, has good breath sounds on both sides, no wheezes rhonchi or crepitations are heard. Cardio Palpation: normal PMI Rate: regular rate Rhythm: regular rhythm Heart sounds: no gallops and no murmurs GI Palpation (GI): Soft to palpation, nontender, No hepatosplenomegaly present and no masses Auscultation: normal bowel sounds Back/Spine/Pelvis Thoracic/Lumbar Spine: thoracic and lumbar spine normal to inspection Skin General skin exam: no rashes or lesions noted Neuro General: patient oriented x3 and no focal motor deficits Cranial nerves: Yes CN's II-XII intact bilaterally Extrem General: Yes normal to inspection, Yes no clubbing, cyanosis or edema and Yes no calf tenderness Psych Appearance: grossly normal and well kempt Speech and movement: Normal speech and movement present Assessment & Plan Assessment & Plan (1) COPD (chronic obstructive pulmonary disease): Comment: 09/24/21 COPD IS REMAINING VERY STABLE WITHOUT ANY EXACERBATION. Code(s): J44.9 - Chronic obstructive pulmonary disease, unspecified Plan: [place] : CONTINUE THE PRESENT MEDICAL REGIMEN WHICH INCLUDES: FLOVENT-110 2 PUFFS B.I.D. SEREVENT- 50 MG 1 INHALATION B.I.D. AND ALBUTEROL 2 PUFFS Q.4 HOURS ONLY P.R.N. MUCINEX 600 MG BID . (2) Smoker: Comment: PATIENT CONTINUES TO SMOKE 1 PACK OF CIGARETTES A DAY. ONCE AGAIN I DISCUSSED WITH HER , IN DETAIL AND RECOMMEND THAT SHE SHOULD QUIT COMPLETELY. INFORMATION ABOUT QUIT SMOKING PROGRAM PROVIDED . PATIENT DOES NOT HAVE ANY INTENTION TO QUIT. * PATIENT IS PARTICIPATING IN ANNUAL LUNG SCREENING PROGRAM, Code(s): F17.200 - Nicotine dependence, unspecified, uncomplicated Plan: ABOVE (3) Allergic rhinitis: Comment: CHRONIC ALLERGIC RHINITIS, AROUND THE YEAR, Code(s): J30.9 - Allergic rhinitis, unspecified Plan: [place]: FLONASE 50 2 SPRAY EACH NOSTRIL DAILY LORATADINE 10 MG ONCE A DAY PRN (4) Cough: Comment: HER COUGH IS DEFINITELY RELATED TO HER ONGOING SMOKING. Code(s): R05.9 - Cough, unspecified Plan: TALKED ABOUT QUITTING SMOKING. MAY USE MUCINEX 400 OR 600 MG B.I.D.. ALSO ADVISED TO USE THE HUMIDIFIER IN THE HOUSE DURING WINTER MONTHS. PATIENT AGREED TO TRY USING NICOTINE PATCH WHICH I WILL PRESCRIBE Medications: New nicotine 1 patch transdermal DAILY 28 days 28 ea 3RF SMOKING Refilled salmeterol (Serevent Diskus) 1 inh inhalation BID 30 days 60 ea 5RF COPD fluticasone propionate 50 mcg/actuation (Flonase Allergy Relief) administer into each nostril 2 sprays intranasal DAILY 30 days 16 grams 5RF ALLERGIC RHINITIS fluticasone propionate 110 mcg/actuation (Flovent HFA) administer with spacer 2 puffs inhalation BID 30 days 12 grams 5RF COPD Coding Level of Care Code Est Pt Level 3 (24139) Diagnoses COPD (chronic obstructive pulmonary disease) J44.9 Smoker F17.200 Allergic rhinitis J30.9 Cough R05.9
[2023-09-22 14:48] VITALS: BP 120/70; PULSE 73; O2SAT 98; BMI 26.3
== END 2023-09-22 15:11 | disposition home or self-care (01) ==
PROVIDERS: PCP Internal Medicine; Visit Provider Internal Medicine
DX: J44.9 Chronic obstructive pulmonary disease, unspecified (principal); F17.200 Nicotine dependence, unspecified, uncomplicated; J30.9 Allergic rhinitis, unspecified; R05.9 Cough, unspecified
CPT/HCPCS: 99213

== ENCOUNTER → 2023-09-22 14:36 | Outpatient (BNVA) | payer OTHER, SELFPAY | PROVIDERS: PCP Internal Medicine; Visit Provider Internal Medicine | DX: J44.9 Chronic obstructive pulmonary disease, unspecified (principal); J30.9 Allergic rhinitis, unspecified; R05.9 Cough, unspecified; F17.210 Nicotine dependence, cigarettes, uncomplicated | CPT/HCPCS: 99212 ==

== ENCOUNTER 2023-12-10 11:12 | Outpatient (AMB) | payer OTHER, SELFPAY ==
[2023-12-10 11:19] VITALS: BP 122/68; PULSE 74; O2SAT 96; BMI 29.5
--- NOTE | 2023-12-10 11:19 | A.OFFVIS_ITS ---
Intake Vital Signs 12/10/23 11:19 Height 5 ft 1 in Weight 156 lb BMI 29.5 BP 122/68 Blood Pressure Location Lt brachial Position Sitting Pulse 74 Pulse Source Pulse Oximeter Pulse Oximetry (%) 96 Oxygen Delivery Method Room Air Intake Visit Reasons: copd Intake Note: pt is here for follow up and states she is dealing with running nose, the last weight was put in error it was 159 not 139 today is 156. 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 Allergies ciprofloxacin [From CIPRO] Allergy (Intermediate, Verified 12/10/23 11:41) HIVES Medication List - Last Reconciled 12/10/23 by Mia Harmon MD atorvastatin 80 mg PO DAILY 90 days bisacodyl (Dulcolax (bisacodyl)) 10 mg (2 x 5 mg) PO ONCE 1 day cetirizine (Zyrtec) 10 mg PO DAILY 90 days fluticasone propionate 50 mcg/actuation (Flonase Allergy Relief) 2 sprays intranasal DAILY 30 days fluticasone propionate 110 mcg/actuation (Flovent HFA) 2 puffs inhalation BID 30 days omeprazole 20 mg PO DAILY 90 days salmeterol (Serevent Diskus) 1 inh inhalation BID 30 days tolterodine (Detrol) 2 mg PO BEDTIME 90 days trazodone 50 mg PO BEDTIME PRN 90 days Do you need a note to return to daycare/school/sports/work: No HPI copd HPI Details 68 YEARS OLD FEMALE, LONG-TIME SMOKER, S TILL SMOKING ABOUT 1 PACK OF CIGARETTES A DAY, IS BEING FOLLOWED FOR MILD COPD AND ALLERGIC RHINITIS. COMPLAINS OF FREQUENT BOUTS OF NASAL CONGESTION WITH POSTNASAL DISCHARGE AND COUGH. GETS SHORT OF BREATH ON WALKING UP HILL OR CLIMBING STAIRS. SHE DOES USE SOLU-MEDROL 51 INHALATION B.I.D. AND FLOVENT-1102 PUFFS B.I.D.. HAS HAD NO RECENT RESPIRATORY INFECTION. [facility] Medical History Allergic rhinitis Cough Shoulder pain, left COPD (chronic obstructive pulmonary disease) Smoker Tobacco abuse Difficulty sleeping Depression, major, recurrent Lipid disorder HLD (hyperlipidemia) Surgical History Hx of colonoscopy History of repair of laceration History of hysterectomy Hx of cholecystectomy Family History Father Myocardial infarction Mother Stomach cancer Son No problems noted. Daughter No problems noted. Daughter No problems noted. 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 Cognitive needs: No Hearing needs: No Vision needs: No Review of Systems Const All systems reviewed & are unremarkable except as noted in HPI and below Eyes Reports no additional complaints ENT Reports no additional complaints Card Denies chest pain, Denies irregular heart rhythm and Denies leg edema Resp Reports as per HPI GI Reports heartburn (Intermittent, controlled with omeprazole) Reports no additional complaints Musc Reports no additional complaints Skin/Breast Reports system reviewed and no additional complaints, except as documented Neuro Reports no additional complaints Psych Reports no additional complaints Physical Exam Vital Signs: Last Vital Signs Pulse 74 12/10/23 11:19 BP 122/68 12/10/23 11:19 Pulse Ox 96 12/10/23 11:19 Oxygen Delivery Method Room Air 12/10/23 11:19 BMI result Body Mass Index 29.5 Const General: healthy appearing, comfortable, no acute distress, alert and awake Orientation/consciousness: patient oriented x3 HEENT Head: Yes normal to inspection General nose exam: No nasal polyps present and No nasal discharge present Face and sinus: Yes sinuses nontender Mouth: oropharynx normal Throat: Yes posterior oropharynx normal Eyes General: appearance normal, both eyes and all related structures Neck Neck: Yes normal visual inspection, Yes no lymphadenopathy, Yes trachea midline and Yes no JVD Thyroid: Thyroid normal Chest Chest palpation & inspection: normal inspection of the chest, normal palpation of entire chest wall and no tenderness Resp Other: Percussion note resonant, has good breath sounds on both sides, no wheezes rhonchi or crepitations are heard. Cardio Palpation: normal PMI Rate: regular rate Rhythm: regular rhythm Heart sounds: no gallops and no murmurs GI Palpation (GI): Soft to palpation, nontender, No hepatosplenomegaly present and no masses Auscultation: normal bowel sounds Back/Spine/Pelvis Thoracic/Lumbar Spine: thoracic and lumbar spine normal to inspection Skin General skin exam: no rashes or lesions noted Neuro General: patient oriented x3 and no focal motor deficits Cranial nerves: Yes CN's II-XII intact bilaterally Extrem General: Yes normal to inspection, Yes no clubbing, cyanosis or edema and Yes no calf tenderness Psych Appearance: grossly normal and well kempt Speech and movement: Normal speech and movement present Assessment & Plan Assessment & Plan (1) Allergic rhinitis: Comment: CHRONIC ALLERGIC RHINITIS, AROUND THE YEAR, Code(s): J30.9 - Allergic rhinitis, unspecified Plan: USE VAPORIZER IN THE BEDROOM. FLONASE-50 2 SPRAY EACH NOSTRIL DAILY. CETIRIZINE 10 MG ONCE A DAY. (2) Cough: Comment: HER COUGH IS DEFINITELY RELATED TO HER ONGOING SMOKING. Code(s): R05.9 - Cough, unspecified Plan: WE FOCUSED MORE ON DISCUSSION ABOUT SMOKING CESSATION .SHE WILL TRY HER BEST (3) COPD (chronic obstructive pulmonary disease): Comment: 09/24/21 COPD IS REMAINING VERY STABLE WITHOUT ANY EXACERBATION. BOUTS OF COUGH OR MORE DUE TO SMOKING. Code(s): J44.9 - Chronic obstructive pulmonary disease, unspecified Plan: [id number] 1 INHALATION B.I.D. FLOVENT-110 2 PUFFS B.I.D.. ALBUTEROL HFA 2 PUFFS Q 4-6 HOURS ONLY P.R.N. (4) Smoker: Comment: PATIENT CONTINUES TO SMOKE 1 PACK OF CIGARETTES A DAY. * PATIENT IS PARTICIPATING IN ANNUAL LUNG SCREENING PROGRAM, Code(s): F17.200 - Nicotine dependence, unspecified, uncomplicated Plan: ONCE AGAIN I DISCUSSED WITH HER , IN DETAIL AND RECOMMENDED THAT SHE SHOULD QUIT COMPLETELY. INFORMATION ABOUT QUIT SMOKING PROGRAM PROVIDED . WILL ALSO ORDER NICOTINE PATCH.. Medications: New nicotine apply 1-21 mg NICOTINE PATCH daily for 28 days; follow with 1-14 mg PATCH daily for 14 days, then 1-7mg PATCH daily for 14 days transdermal 56 patches 0RF QUIT SMOKING 28 days Coding Level of Care Code Est Pt Level 3 (68608) Diagnoses Allergic rhinitis J30.9 Cough R05.9 COPD (chronic obstructive pulmonary disease) J44.9 Smoker F17.200
== END 2023-12-10 11:41 | disposition home or self-care (01) ==
PROVIDERS: PCP Internal Medicine; Visit Provider Internal Medicine
DX: J30.9 Allergic rhinitis, unspecified (principal); R05.9 Cough, unspecified; J44.9 Chronic obstructive pulmonary disease, unspecified; F17.200 Nicotine dependence, unspecified, uncomplicated
CPT/HCPCS: 99213

== ENCOUNTER → 2023-12-10 11:12 | Outpatient (BNVA) | payer OTHER, SELFPAY | PROVIDERS: PCP Internal Medicine; Visit Provider Internal Medicine | DX: J44.9 Chronic obstructive pulmonary disease, unspecified (principal); J30.9 Allergic rhinitis, unspecified; R05.9 Cough, unspecified; F17.210 Nicotine dependence, cigarettes, uncomplicated | CPT/HCPCS: 99212 ==

== ENCOUNTER 2024-01-19 11:44 | Outpatient (REF) | payer OTHER, SELFPAY | END 2024-01-19 11:45 | disposition home or self-care (01) | LOC: HO.MAMMO 11:44 | PROVIDERS: PCP Internal Medicine; Visit Provider Internal Medicine | DX: Z12.31 Encounter for screening mammogram for malignant neoplasm of breast (principal) | CPT/HCPCS: 77063; 77067 ==

== ENCOUNTER → 2024-01-19 12:00 | Outpatient (BNV) | payer OTHER, SELFPAY | PROVIDERS: PCP Internal Medicine; Visit Provider Radiology Diagnostic Radiology | DX: Z12.31 Encounter for screening mammogram for malignant neoplasm of breast (principal) | CPT/HCPCS: 77063; 77067 ==

== ENCOUNTER 2024-02-03 13:38 | Outpatient (AMB) | payer OTHER, SELFPAY ==
--- NOTE | 2024-02-03 14:13 | MHC.OFFVIS ---
Vital Signs 02/03/24 14:14 Height 5 ft 1 in Weight 158 lb 11.725 oz BMI 30.0 BP 122/68 Blood Pressure Location Lt brachial Position Sitting Pulse 72 Pulse Source Pulse Oximeter Pulse Oximetry (%) 96 Oxygen Delivery Method Room Air Intake Visit Reasons: surgery in February Intake Note: pt is here for pre-op clearance for colonoscopy in March here at [employer] Required: No Allergies ciprofloxacin [From CIPRO] Allergy (Intermediate, Verified 02/03/24 14:27) HIVES Medication List - Last Reconciled 02/03/24 by Mia Harmon MD atorvastatin 80 mg PO DAILY 90 days bisacodyl (Dulcolax (bisacodyl)) 10 mg (2 x 5 mg) PO ONCE 1 day cetirizine (Zyrtec) 10 mg PO DAILY 90 days fluticasone propionate 50 mcg/actuation (Flonase Allergy Relief) 2 sprays intranasal DAILY 30 days fluticasone propionate 110 mcg/actuation (Flovent HFA) 2 puffs inhalation BID 30 days nicotine apply 1-21 mg NICOTINE PATCH daily for 28 days; follow with 1-14 mg PATCH daily for 14 days, then 1-7mg PATCH daily for 14 days transdermal 28 days omeprazole 20 mg PO DAILY 90 days salmeterol (Serevent Diskus) 1 inh inhalation BID 30 days tolterodine (Detrol) 2 mg PO BEDTIME 90 days trazodone 50 mg PO BEDTIME PRN 90 days Do you need a note to return to daycare/school/sports/work: No HPI HPI surgery in February: Details: 68 YEARS OLD FEMALE, LIFELONG SMOKER, IS BEING FOLLOWED FOR COPD. BREATHING LEAL SHE IS DOING FAIRLY WELL EXCEPT INTERMITTENT COUGH AND ALSO GETTING SHORT OF BREATH ON CLIMBING STAIRS OR WALKING UP HILL. HER MAIN PROMINENT SYMPTOM IS THAT OF NASAL CONGESTION WHICH IS DUE TO CHRONIC ALLERGIC RHINITIS, BUT IT IS SOMEWHAT WORST IN SPRING SEASON. IN SPITE OF USING FLONASE AND CETIRIZINE 10 MG DAILY. SHE IS STILL SMOKING ABOUT 15 CIGARETTES A DAY, EVEN WITH NICOTINE PATCH. SHE IS GOING TO HAVE HER ROUTINE COLONOSCOPY. SHE IS ALSO SCHEDULED TO HAVE LOW-DOSE CT SCAN OF THE LUNG. [facility] Medical History Allergic rhinitis Cough Shoulder pain, left COPD (chronic obstructive pulmonary disease) Smoker Tobacco abuse Difficulty sleeping Depression, major, recurrent Lipid disorder HLD (hyperlipidemia) Surgical History Hx of colonoscopy History of repair of laceration History of hysterectomy Hx of cholecystectomy Family History Father Myocardial infarction Mother Stomach cancer Son No problems noted. Daughter No problems noted. Daughter No problems noted. 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 Cognitive needs: No Hearing needs: No Vision needs: No Review of Systems Const All systems reviewed & are unremarkable except as noted in HPI and below Eyes Reports no additional complaints ENT Reports no additional complaints Card Denies chest pain, Denies irregular heart rhythm and Denies leg edema Resp Reports as per HPI GI Reports heartburn (Intermittent, controlled with omeprazole) Reports no additional complaints Musc Reports no additional complaints Skin/Breast Reports system reviewed and no additional complaints, except as documented Neuro Reports no additional complaints Psych Reports no additional complaints Physical Exam Vital Signs: Last Vital Signs Pulse 72 02/03/24 14:14 BP 122/68 02/03/24 14:14 Pulse Ox 96 02/03/24 14:14 Oxygen Delivery Method Room Air 02/03/24 14:14 BMI result Body Mass Index 30.0 Const General: healthy appearing, comfortable, no acute distress, alert and awake Orientation/consciousness: patient oriented x3 HEENT Head: Yes normal to inspection General nose exam: No nasal polyps present, No nasal discharge present and Other nasal findings present (MILD NASAL CONGESTION) Face and sinus: Yes sinuses nontender Mouth: oropharynx normal Throat: Yes posterior oropharynx normal Eyes General: appearance normal, both eyes and all related structures Neck Neck: Yes normal visual inspection, Yes no lymphadenopathy, Yes trachea midline and Yes no JVD Thyroid: Thyroid normal Chest Chest palpation & inspection: normal inspection of the chest, normal palpation of entire chest wall and no tenderness Resp Other: Percussion note resonant, has good breath sounds on both sides, no wheezes rhonchi or crepitations are heard. Cardio Palpation: normal PMI Rate: regular rate Rhythm: regular rhythm Heart sounds: no gallops and no murmurs GI Palpation (GI): Soft to palpation, nontender, No hepatosplenomegaly present and no masses Auscultation: normal bowel sounds Back/Spine/Pelvis Thoracic/Lumbar Spine: thoracic and lumbar spine normal to inspection Skin General skin exam: no rashes or lesions noted Neuro General: patient oriented x3 and no focal motor deficits Cranial nerves: Yes CN's II-XII intact bilaterally Extrem General: Yes normal to inspection, Yes no clubbing, cyanosis or edema and Yes no calf tenderness Psych Appearance: grossly normal and well kempt Speech and movement: Normal speech and movement present Assessment & Plan Assessment & Plan (1) Smoker: Comment: PATIENT CONTINUES TO SMOKE 1 PACK OF CIGARETTES A DAY. SAYS NOW DOWN TO 15 CIGARETTES A DAY * PATIENT IS PARTICIPATING IN ANNUAL LUNG SCREENING PROGRAM, Code(s): F17.200 - Nicotine dependence, unspecified, uncomplicated Category: Social Hx (2) COPD (chronic obstructive pulmonary disease): Comment: SHE DOES HAVE CHRONIC OBSTRUCTIVE PULMONARY DISEASE, DEFINITELY RELATED TO SMOKING. CLINICALLY STABLE AND CONTROLLED. Code(s): J44.9 - Chronic obstructive pulmonary disease, unspecified Category: Medical Plan: [place] : FLOVENT - 1102 PUFFS B.I.D. SEREVENT-50 1 INHALATION B.I.D. ALBUTEROL HFA 2 PUFFS Q 4-6 HOURS P.R.N. (3) Allergic rhinitis: Comment: CHRONIC ALLERGIC RHINITIS, AROUND THE YEAR, SYMPTOMS ARE WORSE IN SPRING. SHE IS USING FLONASE SPRAY EVERY DAY AND ALSO TAKES ZYRTEC 10 MG DAILY. Code(s): J30.9 - Allergic rhinitis, unspecified Category: Medical Plan: I DISCUSSED WITH HER AND I WOULD ADD SINGULAIR 10 MG DAILY AND SEE IF THIS CAN CONTROL HER SYMPTOMS BETTER. (4) Cough: Comment: HER COUGH IS DEFINITELY RELATED TO ALLERGIC RHINITIS/ COPD AND ONGOING SMOKING. Code(s): R05.9 - Cough, unspecified Category: Medical Plan: ADVISED AND EXPLAINED TO HER. MADE HER AWARE THAT COUGH IS NOT GOING TO BE CONTROLLED UNTIL SHE STOPS SMOKING COMPLETELY. Plan * FOR THE UNDERGOING COLONOSCOPY, FROM PULMONARY POINT OF VIEW SHE HAS NO PROBLEM. SO SHE IS CLEARED FOR THE PROCEDURE Medications: New montelukast 10 mg PO DAILY 30 days 30 tabs 3RF ALLERGIC RHINITIS Coding Level of Care Code Est Pt Level 3 (47565) Diagnoses Smoker F17.200 COPD (chronic obstructive pulmonary disease) J44.9 Allergic rhinitis J30.9 Cough R05.9
[2024-02-03 14:14] VITALS: BP 122/68; PULSE 72; O2SAT 96
== END 2024-02-03 14:29 | disposition home or self-care (01) ==
PROVIDERS: PCP Nurse Practitioner Pediatrics; Visit Provider Internal Medicine
DX: F17.200 Nicotine dependence, unspecified, uncomplicated (principal); J44.9 Chronic obstructive pulmonary disease, unspecified; J30.9 Allergic rhinitis, unspecified; R05.9 Cough, unspecified
CPT/HCPCS: 99213

== ENCOUNTER → 2024-02-03 13:38 | Outpatient (BNVA) | payer OTHER, SELFPAY | PROVIDERS: PCP Nurse Practitioner Pediatrics; Visit Provider Internal Medicine | DX: J44.9 Chronic obstructive pulmonary disease, unspecified (principal); J30.9 Allergic rhinitis, unspecified; F17.210 Nicotine dependence, cigarettes, uncomplicated | CPT/HCPCS: 99212 ==

== ENCOUNTER 2024-02-12 15:02 | Outpatient (REF) | payer OTHER, SELFPAY ==
--- NOTE | ~2024-02-12 | CT_ITS ---
EXAMINATION: CT CHEST SCREENING CLINICAL INFORMATION: Nicotine dependence, cigarettes, uncomplicated. The patient is a current smoker with a 50 pack-year history of smoking. COMPARISON: CT chest 11/12/2022. X-ray chest 07/06/2019. TECHNIQUE: Multidetector volumetric CT imaging of the chest is performed on a Siemens SOMATOM Definition scanner without contrast using low dose technique. Additional 2D coronal and sagittal reformatted images and axial 3D maximum intensity projection (MIP) images are generated on the CT workstation. This CT examination was performed using dose optimization techniques as appropriate, variously including the following: *Automated exposure control *Adjustment of mA and/or kV according to patient size (this includes techniques or standardized protocols for targeted exams where dose is matched to indication/reason for exam; i.e. extremities or head) *Use of iterative reconstruction technique DLP: 43 mGy-cm FINDINGS: LUNGS: There is moderate emphysema present along with bronchial thickening. There are a few tiny 2 mm nodules present which may have not been seen previously (right upper lobe 5:148 and left upper lobe 5:149). The lungs are clear with no evidence of inflammation or concerning nodules. MEDIASTINUM: The mediastinum is normal. CORONARY ARTERY CALCIFICATION: Minimal PLEURA: There is no pleural effusion. No pleural mass or thickening. AXILLA: No lymphadenopathy. UPPER ABDOMEN: Status post cholecystectomy. There is hepatic steatosis. OSSEOUS STRUCTURES: Unremarkable. CT/CT lung screening IMPRESSION: 1. Moderate emphysema. 2. Tiny 2 mm nodules not suspicious for malignancy. ASSESSMENT: Lung-RADS category 2: Benign RECOMMENDATION: Routine annual low-dose CT screening in 12 months.
== END 2024-02-12 15:03 | disposition home or self-care (01) ==
LOC: HO.CT 15:02
PROVIDERS: PCP Internal Medicine; Visit Provider Nurse Practitioner Family
DX: Z12.2 Encounter for screening for malignant neoplasm of respiratory organs (principal); F17.210 Nicotine dependence, cigarettes, uncomplicated
CPT/HCPCS: 71271

== ENCOUNTER 2024-04-05 11:06 | Outpatient (AMB) | payer OTHER, SELFPAY ==
[2024-04-05 11:23] VITALS: BP 110/60; PULSE 69; O2SAT 96; BMI 29.5
--- NOTE | 2024-04-05 11:23 | MHC.OFFVIS ---
Vital Signs 04/05/24 11:23 Height 5 ft 1 in Weight 156 lb BMI 29.5 BP 110/60 Blood Pressure Location Lt brachial Position Sitting Pulse 69 Pulse Source Pulse Oximeter Pulse Oximetry (%) 96 Oxygen Delivery Method Room Air Intake Visit Reasons: copd Intake Note: pt is here for follow up and states she is coughing, wakes up at night with cough with production. [employer] Required: No Allergies ciprofloxacin [From CIPRO] Allergy (Intermediate, Verified 04/05/24 11:36) HIVES Medication List - Last Reconciled 04/05/24 by Mia Harmon MD atorvastatin 80 mg PO DAILY 90 days bisacodyl (Dulcolax (bisacodyl)) 10 mg (2 x 5 mg) PO ONCE 1 day cetirizine (Zyrtec) 10 mg PO DAILY 90 days fluticasone propionate 50 mcg/actuation (Flonase Allergy Relief) 2 sprays intranasal DAILY 30 days fluticasone propionate 110 mcg/actuation (Flovent HFA) 2 puffs inhalation BID 30 days montelukast 10 mg PO DAILY 30 days nicotine apply 1-21 mg NICOTINE PATCH daily for 28 days; follow with 1-14 mg PATCH daily for 14 days, then 1-7mg PATCH daily for 14 days transdermal 28 days omeprazole 20 mg PO DAILY 90 days salmeterol (Serevent Diskus) 1 inh inhalation BID 30 days tolterodine (Detrol) 2 mg PO BEDTIME 90 days trazodone 50 mg PO BEDTIME PRN 90 days Do you need a note to return to daycare/school/sports/work: No HPI HPI copd: Details: 69 YEARS OLD FEMALE IS HERE FOR 4 MONTHS FOLLOW-UP. CONTINUES TO SMOKE ABOUT 15 CIGARETTES A DAY, EVEN THOUGH SHE CONTINUES TO APPLY NICOTINE PATCH DAILY. COUGH IS MILD AND INTERMITTENT DURING THE DAYTIME BUT WAKES UP AT NIGHT WITH SEVERE COUGH. WITH THE USE OF MONTELUKAST 10 MG DAILY, SHE SAY IS THE NASAL STUFFINESS IS SOMEWHAT LESS, BUT IT HAS NOT MADE ANY DIFFERENCE IN THE COUGH. HE HAS MILD SHORTNESS OF BREATH ON EXERTION AND STAYS QUITE ACTIVE DURING THE DAYTIME. [facility] Medical History Allergic rhinitis Cough Shoulder pain, left COPD (chronic obstructive pulmonary disease) Smoker Tobacco abuse Difficulty sleeping Depression, major, recurrent Lipid disorder HLD (hyperlipidemia) Surgical History Hx of colonoscopy History of repair of laceration History of hysterectomy Hx of cholecystectomy Family History Father Myocardial infarction Mother Stomach cancer Son No problems noted. Daughter No problems noted. Daughter No problems noted. 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 Cognitive needs: No Hearing needs: No Vision needs: No Review of Systems Const All systems reviewed & are unremarkable except as noted in HPI and below Eyes Reports no additional complaints ENT Reports no additional complaints Card Denies chest pain, Denies irregular heart rhythm and Denies leg edema Resp Reports as per HPI GI Reports heartburn (Intermittent, controlled with omeprazole) Reports no additional complaints Musc Reports no additional complaints Skin/Breast Reports system reviewed and no additional complaints, except as documented Neuro Reports no additional complaints Psych Reports no additional complaints Physical Exam Vital Signs: Last Vital Signs Pulse 69 04/05/24 11:23 BP 110/60 04/05/24 11:23 Pulse Ox 96 04/05/24 11:23 Oxygen Delivery Method Room Air 04/05/24 11:23 BMI result Body Mass Index 29.5 Const General: healthy appearing, comfortable, no acute distress, alert and awake Orientation/consciousness: patient oriented x3 HEENT Head: Yes normal to inspection General nose exam: No nasal polyps present, No nasal discharge present and Other nasal findings present (MILD NASAL CONGESTION) Face and sinus: Yes sinuses nontender Mouth: oropharynx normal Throat: Yes posterior oropharynx normal Eyes General: appearance normal, both eyes and all related structures Neck Neck: Yes normal visual inspection, Yes no lymphadenopathy, Yes trachea midline and Yes no JVD Thyroid: Thyroid normal Chest Chest palpation & inspection: normal inspection of the chest, normal palpation of entire chest wall and no tenderness Resp Other: Percussion note resonant, has good breath sounds on both sides, no wheezes rhonchi or crepitations are heard Does get some cough on taking deep breaths. Cardio Palpation: normal PMI Rate: regular rate Rhythm: regular rhythm Heart sounds: no gallops and no murmurs GI Palpation (GI): Soft to palpation, nontender, No hepatosplenomegaly present and no masses Auscultation: normal bowel sounds Back/Spine/Pelvis Thoracic/Lumbar Spine: thoracic and lumbar spine normal to inspection Skin General skin exam: no rashes or lesions noted Neuro General: patient oriented x3 and no focal motor deficits Cranial nerves: Yes CN's II-XII intact bilaterally Extrem General: Yes normal to inspection, Yes no clubbing, cyanosis or edema and Yes no calf tenderness Psych Appearance: grossly normal and well kempt Speech and movement: Normal speech and movement present Assessment & Plan Assessment & Plan (1) Smoker: Comment: PATIENT CONTINUES TO SMOKE . SAYS NOW DOWN TO 15 CIGARETTES A DAY * PATIENT IS PARTICIPATING IN ANNUAL LUNG SCREENING PROGRAM, Code(s): F17.200 - Nicotine dependence, unspecified, uncomplicated Category: Social Hx Plan: Had a good talk about smoking again and I encouraged her to keep on cutting down the number of cigarettes. Continue nicotine patch 14 mg apply daily. (2) COPD (chronic obstructive pulmonary disease): Comment: SHE DOES HAVE CHRONIC OBSTRUCTIVE PULMONARY DISEASE, MODERATELY SEVERE, RELATED TO SMOKING. CLINICALLY STABLE AND CONTROLLED. Code(s): J44.9 - Chronic obstructive pulmonary disease, unspecified Category: Medical Plan: FLOVENT -110 2 PUFFS B.I.D. SEREVENT DISKUS 51 INHALATION B.I.D. ALBUTEROL HFA 2 PUFFS Q 4-6 HOURS P.R.N. (3) Allergic rhinitis: Comment: CHRONIC ALLERGIC RHINITIS, AROUND THE YEAR, SYMPTOMS ARE WORSE IN SPRING AND SUMMER Code(s): J30.9 - Allergic rhinitis, unspecified Category: Medical Plan: MONTELUKAST 10 MG DAILY ZYRTEC 10 MG ONCE A DAY P.R.N. FLONASE-52 SPRAYS EACH NOSTRIL DAILY. (4) Cough: Comment: HER COUGH IS DEFINITELY RELATED TO ALLERGIC RHINITIS/ COPD AND ONGOING SMOKING. Code(s): R05.9 - Cough, unspecified Category: Medical Plan: EXPLAINED ABOUT THE CAUSE OF COUGH. HAS TO QUIT SMOKING, OTHERWISE THE COUGH WILL CONTINUE. MAY USE MUCINEX 400 MG 1 TABLET B.I.D. P.R.N. FOR COUGH. Coding Level of Care Code Est Pt Level 3 (70840) Diagnoses Smoker F17.200 COPD (chronic obstructive pulmonary disease) J44.9 Allergic rhinitis J30.9 Cough R05.9
== END 2024-04-05 11:47 | disposition home or self-care (01) ==
PROVIDERS: PCP Nurse Practitioner Pediatrics; Visit Provider Internal Medicine
DX: F17.200 Nicotine dependence, unspecified, uncomplicated (principal); J44.9 Chronic obstructive pulmonary disease, unspecified; J30.9 Allergic rhinitis, unspecified; R05.9 Cough, unspecified
CPT/HCPCS: 99213

== ENCOUNTER → 2024-04-05 11:06 | Outpatient (BNVA) | payer OTHER, SELFPAY | PROVIDERS: PCP Nurse Practitioner Pediatrics; Visit Provider Internal Medicine | DX: J44.9 Chronic obstructive pulmonary disease, unspecified (principal); J30.9 Allergic rhinitis, unspecified; F17.210 Nicotine dependence, cigarettes, uncomplicated; Z79.899 Other long term (current) drug therapy | CPT/HCPCS: 99212 ==

== ENCOUNTER 2024-07-28 11:01 | Outpatient (AMB) | payer OTHER, SELFPAY ==
[2024-07-28 11:16] VITALS: BP 120/70; PULSE 78; O2SAT 96; BMI 29.8
--- NOTE | 2024-07-28 11:16 | MHC.OFFVIS ---
Vital Signs 07/28/24 11:16 Height 5 ft 1 in Weight 157 lb 10.088 oz BMI 29.8 BP 120/70 Blood Pressure Location Lt brachial Position Sitting Pulse 78 Pulse Source Pulse Oximeter Pulse Oximetry (%) 96 Oxygen Delivery Method Room Air Intake Visit Reasons: COPD Intake Note: pt is here for follow up and states she has a cough, she is scheduled to have upper and lower endoscopy tomorrow at [facility] Required: No Allergies ciprofloxacin [From CIPRO] Allergy (Intermediate, Verified 07/28/24 11:29) HIVES Medication List - Last Reconciled 07/28/24 by Mia Harmon MD atorvastatin 80 mg PO DAILY 90 days bisacodyl (Dulcolax (bisacodyl)) 10 mg (2 x 5 mg) PO ONCE 1 day bisacodyl (Dulcolax (bisacodyl)) 20 mg (4 x 5 mg) PO ONCE 1 day cetirizine (Zyrtec) 10 mg PO DAILY 90 days fluticasone propionate 50 mcg/actuation (Flonase Allergy Relief) 2 sprays intranasal DAILY 30 days fluticasone propionate 110 mcg/actuation (Flovent HFA) 2 puffs inhalation BID 30 days montelukast 10 mg PO DAILY 30 days omeprazole 20 mg PO DAILY 90 days polyethylene glycol 3350 (Miralax) 238 grams PO ONCE 1 day salmeterol (Serevent Diskus) 1 inh inhalation BID 30 days tolterodine (Detrol) 2 mg PO BEDTIME 90 days trazodone 50 mg PO BEDTIME PRN 90 days Do you need a note to return to daycare/school/sports/work: No HPI HPI COPD: Details: 69 YEARS OLD FEMALE IS HERE FOR HER ROUTINE FOLLOW-UP AFTER 4 MONTHS. CONTINUES TO SMOKE 1 PACK OF CIGARETTES A DAY IN SPITE OF USING NICOTINE PATCH. BREATHING HAS BEEN FAIRLY STABLE WITH HER CURRENT INHALERS. AND SIMILARLY THE NASAL SYMPTOMS ARE CONTROLLED WITH USE OF FLONASE, MONTELUKAST AND CETIRIZINE . MILD INTERMITTENT COUGH IS MOSTLY RELATED TO SMOKING. [facility] Medical History Allergic rhinitis Cough Shoulder pain, left COPD (chronic obstructive pulmonary disease) Smoker Tobacco abuse Difficulty sleeping Depression, major, recurrent Lipid disorder HLD (hyperlipidemia) Surgical History Hx of colonoscopy History of repair of laceration History of hysterectomy Hx of cholecystectomy Family History Father Myocardial infarction Mother Stomach cancer Son No problems noted. Daughter No problems noted. Daughter No problems noted. 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 Cognitive needs: No Hearing needs: No Vision needs: No Review of Systems Const All systems reviewed & are unremarkable except as noted in HPI and below Eyes Reports no additional complaints ENT Reports no additional complaints Card Denies chest pain, Denies irregular heart rhythm and Denies leg edema Resp Reports as per HPI GI Reports heartburn (Intermittent, controlled with omeprazole) Reports no additional complaints Musc Reports no additional complaints Skin/Breast Reports system reviewed and no additional complaints, except as documented Neuro Reports no additional complaints Psych Reports no additional complaints Physical Exam Vital Signs: Last Vital Signs Pulse 78 07/28/24 11:16 BP 120/70 07/28/24 11:16 Pulse Ox 96 07/28/24 11:16 Oxygen Delivery Method Room Air 07/28/24 11:16 BMI result Body Mass Index 29.8 Const General: healthy appearing, comfortable, no acute distress, alert and awake Orientation/consciousness: patient oriented x3 HEENT Head: Yes normal to inspection General nose exam: No nasal polyps present, No nasal discharge present and Other nasal findings present (MILD NASAL CONGESTION) Face and sinus: Yes sinuses nontender Mouth: oropharynx normal Throat: Yes posterior oropharynx normal Eyes General: appearance normal, both eyes and all related structures Neck Neck: Yes normal visual inspection, Yes no lymphadenopathy, Yes trachea midline and Yes no JVD Thyroid: Thyroid normal Chest Chest palpation & inspection: normal inspection of the chest, normal palpation of entire chest wall and no tenderness Resp Other: Percussion note resonant, has good breath sounds but distant on both sides, no wheezes rhonchi or crepitations are heard Does get some cough on taking deep breaths. Cardio Palpation: normal PMI Rate: regular rate Rhythm: regular rhythm Heart sounds: no gallops and no murmurs GI Palpation (GI): Soft to palpation, nontender, No hepatosplenomegaly present and no masses Auscultation: normal bowel sounds Back/Spine/Pelvis Thoracic/Lumbar Spine: thoracic and lumbar spine normal to inspection Skin General skin exam: no rashes or lesions noted Neuro General: patient oriented x3 and no focal motor deficits Cranial nerves: Yes CN's II-XII intact bilaterally Extrem General: Yes normal to inspection, Yes no clubbing, cyanosis or edema and Yes no calf tenderness Psych Appearance: grossly normal and well kempt Speech and movement: Normal speech and movement present Assessment & Plan Assessment & Plan (1) COPD (chronic obstructive pulmonary disease): Comment: 09/24/21 COPD IS REMAINING VERY STABLE WITHOUT ANY EXACERBATION. BOUTS OF COUGH ARE MORE DUE TO SMOKING. Code(s): J44.9 - Chronic obstructive pulmonary disease, unspecified Category: Medical Plan: CONTINUE SEREVENT-51 INHALATION B.I.D. AND FLOVENT-1102 PUFFS B.I.D.. USE ALBUTEROL HFA 2 PUFFS Q 6 HOURS P.R.N. (2) Smoker: Comment: PATIENT CONTINUES TO SMOKE 15-20 CIGARETTES A DAY. SAY IS NICOTINE PATCHES HAVE NOT HELPED AT ALL. Code(s): F17.200 - Nicotine dependence, unspecified, uncomplicated Category: Social Hx Plan: TALKED ABOUT QUITTING SMOKING, .SHE HAS TRIED MOST OF THE MODALITIES WITHOUT ANY SUCCESS I STRESS THAT SHE HAS TO USE HER WILL POWER. AND CUT DOWN THE CIGARETTES FROM 15-10, IN THE NEXT 4 MONTHS. CONTINUE ANNUAL LUNG SCREENING WITH LD CT (3) Allergic rhinitis: Comment: CHRONIC ALLERGIC RHINITIS, AROUND THE YEAR, SYMPTOMS ARE WORSE IN SPRING AND SUMMER NOW RELATIVELY CONTROLLED WITH HER MEDS. Code(s): J30.9 - Allergic rhinitis, unspecified Category: Medical Plan: MONTELUKAST 10 MG DAILY. FLONASE-52 SPRAY IN EACH NOSTRIL DAILY. MAY USE CETIRIZINE 10 MG 1 TABLET ONCE A DAY P.R.N.. Coding Level of Care Code Est Pt Level 3 (78736) Diagnoses COPD (chronic obstructive pulmonary disease) J44.9 Smoker F17.200 Allergic rhinitis J30.9
== END 2024-07-28 11:31 | disposition home or self-care (01) ==
PROVIDERS: PCP Nurse Practitioner Pediatrics; Visit Provider Internal Medicine
DX: J44.9 Chronic obstructive pulmonary disease, unspecified (principal); F17.200 Nicotine dependence, unspecified, uncomplicated; J30.9 Allergic rhinitis, unspecified
CPT/HCPCS: 99213

== ENCOUNTER → 2024-07-28 11:01 | Outpatient (BNVA) | payer OTHER, SELFPAY | PROVIDERS: PCP Nurse Practitioner Pediatrics; Visit Provider Internal Medicine | DX: J44.9 Chronic obstructive pulmonary disease, unspecified (principal); J30.9 Allergic rhinitis, unspecified; F17.210 Nicotine dependence, cigarettes, uncomplicated | CPT/HCPCS: 99212 ==

== ENCOUNTER 2024-07-29 07:55 | Day surgery (SDC) | payer OTHER, SELFPAY ==
--- NOTE | 2024-07-27 10:45 | HO.ANESPROP2 ---
Documented by User: Ashley Aldana NP 07/27/24 10:46 HPI - Anesthesia Eval Consult details Narrative: 69yo F for Upper Endoscopy and Colonoscopy PMF Active Problems Active Problems: All Active Problems Mallet deformity of right ring finger (Acute) Allergic rhinitis (Acute) Cough (Acute) Arm pain, left (Acute) Shoulder pain, left (Acute) Bladder disorder (Acute) Exposure to COVID-19 virus (Acute) Somatic dysfunction of right sacroiliac joint (Acute) Hordeolum externum left upper eyelid (Acute) Environmental allergies (Acute) Encounter for general adult medical examination with abnormal findings (Acute) Breast screening (Acute) Cystitis (Acute) Colon cancer screening (Acute) Papanicolaou smear declined (Acute) Acid reflux (Acute) COPD (chronic obstructive pulmonary disease) (Acute) Pelvic pressure in female (Acute) Stress incontinence (Acute) Shoulder pain, left (Acute) COPD (chronic obstructive pulmonary disease) (Acute) Smoker (Acute) Tobacco abuse (Acute) Difficulty sleeping (Acute) Lipid disorder (Acute) HLD (hyperlipidemia) (Acute) Past Medical History Medical History Allergic rhinitis Cough Shoulder pain, left COPD (chronic obstructive pulmonary disease) Smoker Tobacco abuse Difficulty sleeping Depression, major, recurrent Lipid disorder HLD (hyperlipidemia) Family History Family History Father Myocardial infarction Mother Stomach cancer Son No problems noted. Daughter No problems noted. Daughter No problems noted. Surgical History Surgical History Hx of colonoscopy History of repair of laceration History of hysterectomy Hx of cholecystectomy Social History Social History Housing: Other (mobile home) Are you a primary career services coordinator to a significant other at home: No Do you presently have visiting nurse or other home services: No Alcohol intake: never Patient Tobacco Use Status: Current everyday Tobacco user Tobacco use type: Cigarette Cigarette Packs Per Day: 1 Cigarettes Per Day: 20.0 Years Smoked: 50 e-Cigarette/Vaping Use: Never Used Second Hand Smoke Exposure: No Use of substances other than those prescribed or required for medical reasons: No Have you been hit, kicked, punched, or otherwise hurt by someone within the past year? 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 Cognitive needs: No Hearing needs: No Vision needs: No Meds Allergies Allergy/AdvReac Type Severity Reaction Status Date / Time ciprofloxacin [From CIPRO] Allergy Intermediate HIVES Verified 07/28/24 11:29 Assessment and Plan Assessment Anesthesia Assessment: Chart Reviewed Documented by User: Tameka Davis MD 07/29/24 10:01 [facility] Past Medical History Medical History Allergic rhinitis Cough Shoulder pain, left COPD (chronic obstructive pulmonary disease) Smoker Tobacco abuse Difficulty sleeping Depression, major, recurrent Lipid disorder HLD (hyperlipidemia) Family History Family History Father Myocardial infarction Mother Stomach cancer Son No problems noted. Daughter No problems noted. Daughter No problems noted. Family history of problems with anesthesia: No Surgical History Surgical History Hx of colonoscopy History of repair of laceration History of hysterectomy Hx of cholecystectomy History of Problems with Anesthesia: No Social History Social History Housing: Other (mobile home) Are you a primary career services coordinator to a significant other at home: No Do you presently have visiting nurse or other home services: No Alcohol intake: never Patient Tobacco Use Status: Current everyday Tobacco user Tobacco use type: Cigarette Cigarette Packs Per Day: 1 Cigarettes Per Day: 20.0 Years Smoked: 50 e-Cigarette/Vaping Use: Never Used Second Hand Smoke Exposure: No Use of substances other than those prescribed or required for medical reasons: No Have you been hit, kicked, punched, or otherwise hurt by someone within the past year? 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 Cognitive needs: No Hearing needs: No Vision needs: No Meds Allergies Allergy/AdvReac Type Severity Reaction Status Date / Time ciprofloxacin [From CIPRO] Allergy Intermediate HIVES Verified 07/28/24 11:29 Exam Airway Mallampati Class: II TM Dist: >3cm Neck ROM: Full Heart: rrr Assessment and Plan Assessment Anesthesia Assessment: Anesthesia Plan Discussed Final Anesthetic Review Family History of Problems with Anesthesia: No History of Problems with Anesthesia: No NPO: Yes ASA Class: III Final Preanesthetic Review: No Changes in Pt Med Stat, Meds/Allgs Chart Reviewed, Consent Obtained/Reviewed and Anes Risks/Benef Reviewed Patient Risk: Intermediate Procedure Risk: Low Anesthetic Plan Anesthetic Plan: MAC: Disposition: Standard PACU
[2024-07-27 15:05] VITALS: BMI 29.5
[2024-07-29 09:15] VITALS: BP 122/64; PULSE 78; RESP 16; TEMP 36.7; O2SAT 98; BMI 30.4
[2024-07-29] MEDS: Albuterol Sulfate (0.083%) 2.5 MG/3 ML VIAL.NEB INHALE (09:21)
[2024-07-29 09:25] VITALS: PULSE 63; RESP 16; O2SAT 98
[2024-07-29] MEDS: Lactated Ringers 1,000 ML 100 ML IVCONT (09:25)
--- NOTE | 2024-07-29 10:08 | MHC.SHP ---
Pre-Procedural Eval Section A - 24 Hr Update-Section A only Date of Service: 07/29/24 Section B - Complete if H&P > 30 days Chief Complaint: GERD, colo scren Relevant Family History (Specify if Yes): No Relevant Social History: Tobacco Use Present Medications: see Short Stay Collaborative assessment Medical History: Significant History (Allergic rhinitis Cough Shoulder pain, left COPD (chronic obstructive pulmonary disease) Smoker Tobacco abuse Difficulty sleeping Depression, major, recurrent Lipid disorder HLD (hyperlipidemia)) History of Previous Operations: Relevant previous surgery/procedure and date(s) (Hx of colonoscopy History of repair of laceration History of hysterectomy Hx of cholecystectomy) Allergies: Allergies Allergy/AdvReac Type Severity Reaction Status Date / Time ciprofloxacin [From CIPRO] Allergy Intermediate HIVES Verified 07/28/24 11:29 Review of Systems Sugical H&P ROS: Negative: Constitution, Cardiovascular, Respiratory, Neurological, Psychiatric, Hem-Onc, Allergic/Immunologic, Gastrointestinal, Genitourinary, Musculoskeletal, Integumentary, Endocrine and Eyes/Ears/Nose/Throat Exam Surgical H&P Exam: Normal: HEENT, Normal: Heart, Normal: Lungs, Normal: Extremities, Normal: Abdomen, Normal: Skin and Normal: Neurological Plan Diagnosis/Plan: Unchanged I have reviewed the history and physical and performed a pertinent physical examination on my patient. No changes have occurred unless specified. Time Spent With Patient Time: Total time managing care of this patient today ____ minutes.
--- NOTE | 2024-07-29 10:42 | HO.OPN-COLON ---
Colonoscopy Operative Note Operative Note Date of Service: 07/29/24 Narrative: Operative Information Procedure Description: EGD, Colonoscopy Indication: GERD, colon screening Anesthesia: MAC FLEXIBLE TRANSORAL UPPER GASTROINTESTINAL ENDOSCOPY AND COLONOSCOPY PROCEDURE NOTE UPPER ENDOSCOPY Consent: Indications for the procedure and potential complications of bleeding, perforation, reaction to medications and missed diagnosis were discussed with the patient and informed consent was obtained. Instrument: Olympus GIF H 190 J mid size upper endoscope Monitoring: Vital signs and clinical assessment, continuous EKG monitoring, Pulse oximetry, Carbon Dioxide monitoring and blood pressure monitoring were done throughout the procedure. Procedure: The patient was placed in the left lateral decubitis position and pre-procedure medications were administered and a bite block was placed. The endoscope was inserted into the mouth and advanced under direct vision to the third part of duodenum. A careful inspection was made as the upper endoscope was withdrawn including a retroflexed examination of the proximal stomach; Findings and interventions are described below. Findings: Larynx:normal Esophagus: GE junction at 36 cm, diaphragm hiatus at 38 cm, schatzki ring noted, and 2 cm sliding hiatal hernia Stomach: Mild patchy erythema. Biopsies were obtained. Grade 2 flap valve on retroflexed examination of the cardia. Duodenum: Normal bulb and descending duodenum, Intervention: Biopsies as noted above, COLONOSCOPY Instrument: Olympus variable stiffness pediatric scope 190L Colonoscopy Monitoring: Vital signs and clinical assessment, continuous EKG monitoring, Pulse oximetry, Carbon Dioxide monitoring and blood pressure monitoring were done throughout the procedure. Colon withdrawal time was 12 minutes. Procedure: The patient was placed in the left lateral decubitis position and pre-procedure medications were administered. After a digital rectal examination of the ano-rectum, the video colonoscope was inserted into the rectum and advanced through the colon to the cecum/TI. The colonoscope was slowly withdrawn in a retrograde panoramic fashion and the colon mucosa was carefully examined including a retroflexed view of the rectum. Findings and interventions are described below. Procedure Difficulty:moderate Findings: Terminal Ileum-normal Cecum:normal Right sided retroflexion- normal Ascending Colon: normal Transverse Colon -normal Descending Colon: 4-5 mm sessile polyp removed with cold forceps Sigmoid Colon: mild diverticulosis Rectum: Retroflexion with small internal hemorrhoids, grade I , x2 sessile polyps 7-8 mm removed with cold snare Anorectum - normal Colon preparation: [place] Bowel Preparation Scale Right colon; 2 Transverse colon: 2 Left colon; 2 (0 = Unprepared colon segment with mucosa not seen due to solid stool that cannot be cleared. 1 = Portion of mucosa of the colon segment seen, but other areas of the colon segment not well seen due to staining, residual stool and/or opaque liquid. 2 = Minor amount of residual staining, small fragments of stool and/or opaque liquid, but mucosa of colon segment seen well. 3 = Entire mucosa of colon segment seen well with no residual staining, small fragments of stool or opaque liquid) Impression and Post Procedure Diagnosis: Endoscopy Findings: gastritis schatzki ring small hiatal hernia Colonoscopy Findings: diverticulosis colon polyps internal hemorrhoids Plan: Await Pathology results Repeat Colonoscopy in 5-7 years if adenomatous polyps, 10 yrs if hyperplastic or earlier if clinically indicated High fiber diet leaflet avoid straining at stool, epsom salts and sitz bath, anusol supps or cream smoking cessation GERD precautions Above findings were reviewed with the patient and relevant handouts were provided if indicated.
[2024-07-29 10:58] VITALS: BP 127/76; PULSE 115; RESP 16; TEMP 36.1; O2SAT 95
[2024-07-29 11:13] VITALS: BP 117/59; PULSE 103; RESP 20; TEMP 36.4; O2SAT 96
== END 2024-07-29 11:41 | disposition home or self-care (01) ==
PROVIDERS: Visit Provider Internal Medicine Gastroenterology
PROC: (CPT 43239; principal; 2024-07-29 10:50)
DX: K29.70 Gastritis, unspecified, without bleeding (principal); K22.2 Esophageal obstruction; K44.9 Diaphragmatic hernia without obstruction or gangrene; K21.9 Gastro-esophageal reflux disease without esophagitis; Z12.11 Encounter for screening for malignant neoplasm of colon; D12.4 Benign neoplasm of descending colon; K62.1 Rectal polyp; K57.30 Diverticulosis of large intestine without perforation or abscess without bleeding; K64.0 First degree hemorrhoids; E78.5 Hyperlipidemia, unspecified; J44.9 Chronic obstructive pulmonary disease, unspecified; F17.210 Nicotine dependence, cigarettes, uncomplicated; Z79.02 Long term (current) use of antithrombotics/antiplatelets; Z79.899 Other long term (current) drug therapy
CPT/HCPCS: 43239; 45385; 45380; 88305; 88313; 88342; 94640; J1100; J1596; J2003; J2704

== ENCOUNTER → 2024-07-29 07:55 | Outpatient (BNV) | payer OTHER, SELFPAY | PROVIDERS: Visit Provider Internal Medicine Gastroenterology | DX: Z12.11 Encounter for screening for malignant neoplasm of colon (principal); D12.4 Benign neoplasm of descending colon; K63.5 Polyp of colon; K64.0 First degree hemorrhoids; K57.30 Diverticulosis of large intestine without perforation or abscess without bleeding; K21.9 Gastro-esophageal reflux disease without esophagitis; K22.2 Esophageal obstruction; K29.70 Gastritis, unspecified, without bleeding | CPT/HCPCS: 43239; 45380; 45385 ==

== ENCOUNTER 2024-12-01 11:04 | Outpatient (AMB) | payer OTHER, SELFPAY ==
--- NOTE | 2024-12-01 11:24 | A.OFFVIS_ITS ---
Vital Signs 12/01/24 11:26 Height 5 ft 1 in Weight 152 lb 1.903 oz BMI 28.7 BP 94/62 Blood Pressure Location Lt brachial Position Sitting Pulse 75 Pulse Source Pulse Oximeter Pulse Oximetry (%) 96 Oxygen Delivery Method Room Air Intake Visit Reasons: COPD Intake Note: pt is here for follow up and had bad uri and now has a lingering cough with production, clear Body And Frame Man Required: No Allergies ciprofloxacin [From CIPRO] Allergy (Intermediate, Verified 12/01/24 13:27) HIVES Medication List - Last Reconciled 12/01/24 by Mia Harmon MD atorvastatin 80 mg PO DAILY 90 days bisacodyl (Dulcolax (bisacodyl)) 10 mg (2 x 5 mg) PO ONCE 1 day bisacodyl (Dulcolax (bisacodyl)) 20 mg (4 x 5 mg) PO ONCE 1 day cetirizine (Zyrtec) 10 mg PO DAILY 90 days fluticasone propionate 110 mcg/actuation (Flovent HFA) 2 puffs inhalation BID 30 days fluticasone propionate 50 mcg/actuation (Flonase Allergy Relief) 2 sprays intranasal DAILY 30 days montelukast 10 mg PO DAILY 30 days olodaterol 2.5 mcg/actuation (Striverdi Respimat) 2 inhalations inhalation DAILY 30 days omeprazole 20 mg PO DAILY 90 days polyethylene glycol 3350 (Miralax) 238 grams PO ONCE 1 day tolterodine (Detrol) 2 mg PO BEDTIME 90 days trazodone 50 mg PO BEDTIME PRN 90 days HPI HPI COPD: Details: 69 years old female with longstanding history of smoking and chronic obstructive pulmonary, disease comes for follow-up after 4 months. A few weeks ago she did have mild upper respiratory infection, was seen in [facility] clinic and treated with a course of prednisone and azithromycin. She got better but still has some residual bouts of cough. The cough is now mostly nonproductive. Still smokes 15 cigarettes a day. He has mild shortness of breath on walking around but does not have any bouts of wheezing attacks. [facility] Medical History Allergic rhinitis Cough Shoulder pain, left COPD (chronic obstructive pulmonary disease) Smoker Tobacco abuse Difficulty sleeping Depression, major, recurrent Lipid disorder HLD (hyperlipidemia) Surgical History Hx of colonoscopy History of repair of laceration History of hysterectomy Hx of cholecystectomy Family History Father Myocardial infarction Mother Stomach cancer Son No problems noted. Daughter No problems noted. Daughter No problems noted. 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 Cognitive needs: No Hearing needs: No Vision needs: No Review of Systems Const All systems reviewed & are unremarkable except as noted in HPI and below Eyes Reports no additional complaints ENT Reports no additional complaints Card Denies chest pain, Denies irregular heart rhythm and Denies leg edema Resp Reports as per HPI GI Reports heartburn (Intermittent, controlled with omeprazole) Reports no additional complaints Musc Reports no additional complaints Skin/Breast Reports system reviewed and no additional complaints, except as documented Neuro Reports no additional complaints Psych Reports no additional complaints Physical Exam Vital Signs: Last Vital Signs Pulse 75 12/01/24 11:26 BP 94/62 12/01/24 11:26 Pulse Ox 96 12/01/24 11:26 Oxygen Delivery Method Room Air 12/01/24 11:26 BMI result Body Mass Index 28.7 Const General: healthy appearing, comfortable, no acute distress, alert and awake Orientation/consciousness: patient oriented x3 HEENT Head: Yes normal to inspection General nose exam: No nasal polyps present, No nasal discharge present and Other nasal findings present (MILD NASAL CONGESTION) Face and sinus: Yes sinuses nontender Mouth: oropharynx normal Throat: Yes posterior oropharynx normal Eyes General: appearance normal, both eyes and all related structures Neck Neck: Yes normal visual inspection, Yes no lymphadenopathy, Yes trachea midline and Yes no JVD Thyroid: Thyroid normal Chest Chest palpation & inspection: normal inspection of the chest, normal palpation of entire chest wall and no tenderness Resp Other: Percussion note resonant, has good breath sounds but distant on both sides, No wheezes rhonchi or crepitations are heard Cardio Palpation: normal PMI Rate: regular rate Rhythm: regular rhythm Heart sounds: no gallops and no murmurs GI Palpation (GI): Soft to palpation, nontender, No hepatosplenomegaly present and no masses Auscultation: normal bowel sounds Back/Spine/Pelvis Thoracic/Lumbar Spine: thoracic and lumbar spine normal to inspection Skin General skin exam: no rashes or lesions noted Neuro General: patient oriented x3 and no focal motor deficits Cranial nerves: Yes CN's II-XII intact bilaterally Extrem General: Yes normal to inspection, Yes no clubbing, cyanosis or edema and Yes no calf tenderness Psych Appearance: grossly normal and well kempt Speech and movement: Normal speech and movement present Results Reviewed Results Reviewed: LDCT CHEST on 02/12/24 IMPRESSION: 1. Moderate emphysema. 2. Tiny 2 mm nodules not suspicious for malignancy. ASSESSMENT: Lung-RADS category 2: Benign RECOMMENDATION: Routine annual low-dose CT screening in 12 months. Assessment & Plan Assessment & Plan (1) COPD (chronic obstructive pulmonary disease): Comment: SHE DOES HAVE CHRONIC OBSTRUCTIVE PULMONARY DISEASE, MODERATELY SEVERE, RELATED TO SMOKING. CLINICALLY STABLE AND CONTROLLED. Code(s): J44.9 - Chronic obstructive pulmonary disease, unspecified Category: Medical Plan: Continue Flovent-1102 puffs b.i.d. Striverdi Respimat 2 inhalations daily. Albuterol HFA 2 puffs Q 4-6 hours p.r.n. (2) Smoker: Comment: PATIENT CONTINUES TO SMOKE 15-20 CIGARETTES A DAY. SAYS , NICOTINE PATCHES HAVE NOT HELPED AT ALL. Code(s): F17.200 - Nicotine dependence, unspecified, uncomplicated Category: Social Hx Plan: DISCUSSED ABOUT SMOKING, SHE HAS TRIED HER BEST AND HAS NOT BEEN ABLE DO.. ADVISE THAT SHE SHOULD AT LEAST CUT DOWN THE NUMBER OF CIGARETTES. PER DAY (3) Cough: Comment: HER COUGH IS DEFINITELY RELATED TO ALLERGIC RHINITIS/ COPD AND ONGOING SMOKING. IT IS NOT ANY WORSE THAN BEFORE Code(s): R05.9 - Cough, unspecified Category: Medical Plan: CONTINUE THE TREATMENT UNDER COPD. MAY USE ROBITUSSIN 2 TSP T.I.D. FOR COUGH (4) Allergic rhinitis: Comment: CHRONIC ALLERGIC RHINITIS, AROUND THE YEAR, SYMPTOMS ARE WORSE IN SPRING AND SUMMER NOW RELATIVELY CONTROLLED WITH HER MEDS. Code(s): J30.9 - Allergic rhinitis, unspecified Category: Medical Plan: CONTINUE MONTELUKAST 10 MG DAILY MAY USE CETIRIZINE 10 MG ONCE A DAY P.R.N. Coding Level of Care Code Est Pt Level 3 (32135) Diagnoses COPD (chronic obstructive pulmonary disease) J44.9 Smoker F17.200 Cough R05.9 Allergic rhinitis J30.9
[2024-12-01 11:26] VITALS: BP 94/62; PULSE 75; O2SAT 96; BMI 28.7
--- OUTSIDE RECORDS SUMMARY | 2024-12-01 11:52 | XMS_ITS | Encounter Summary ---
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 Name Role Phone Paola Hua MD Primary Care Provider [phone] Reason for Referral * Consultation (Routine) - Authorized Specialty Diagnoses / Procedures Referred By Porter chinchilla Referred To Contact Thoracic Surgery Diagnoses Smoking Paola Hua MD [address] [facility] [address] [place] [address] Phone: tel: fax: Lung Screening Program - [place] [address] [facility] [address] [place] [address] Phone: tel: fax: Referral ID Status Reason Start Date Expiration Date Visits Requested Visits Authorized [id number] Authorized Specialty Services Required 11/09/2024 11/09/2025 1 1 Reason for Visit * Reason Comments Establish Care Encounter Details Date Type Department Care Team (Latest Contact Info) Description 11/09/2024 1:45 PM EST Office Visit Internal Medicine - [place] [address] [phone] Paola Hua MD 175 [facility] [address] [place] [address] Adult general medical examination (Primary Dx); Moderate persistent asthma, unspecified whether complicated; Mixed hyperlipidemia; Allergic rhinitis, unspecified seasonality, unspecified trigger; Chronic obstructive pulmonary disease, unspecified COPD type (CMS/HCC); Smoking; Vitamin D deficiency; Encounter for lipid screening for cardiovascular disease; Other abnormal glucose; Other fatigue; Urinary incontinence, unspecified type; Tobacco dependency Social History Tobacco Use Types Packs/Day Years Used Date Smoking Tobacco: Every Day Cigarettes 1 52.1 Started: 1970 Smokeless Tobacco: Never Tobacco Cessation:Ready to Q uit: Not Asked; Counseling Given: Not Answered Alcohol Use Standard Drinks/Week Comments Yes 0 (1 standard drink = 0.6 oz pur e alcohol) occ Education Answer Date Recorded What is the highest level of school you have completed or the highest degree you have received? High school graduate 11/09/2024 Comments Unknown Sex and Gender Information Value Date Recorded Sex Assigned at Not on file Legal Sex Female 2:10 PM EST Gender Identity Not on file Sexual Orientation Not on file documented as of this encounter Last Filed Vital Signs Vital Sign Reading Time Taken Comments Blood Pressure 98/60 11/09/2024 1:56 PM EST Pulse 91 11/09/2024 1:56 PM EST Temperature 35.6 ??C (96 ??F) 11/09/2024 1:56 PM EST Respiratory Rate - - Oxygen Saturation 96% 11/09/2024 1:56 PM EST Inhaled Oxygen Concentration - - Weight 68 kg (150 lb) 11/09/2024 1:56 PM EST Height 154.9 cm (5' 1 ) 11/09/2024 1:56 PM EST Body Mass Index 28.34 11/09/2024 1:56 PM EST documented in this encounter Patient Instructions * Attachments The following attachments cannot be sent through Care Everywhere. * Smoking Cessation: Health Benefits: General Info (Swedish) documented in this encounter Ordered Prescriptions Prescription Sig Dispense Quantity Refills Last Filled Start Date End Date famotidine (Pepcid) 40 mg tablet Take 1 tablet (40 mg total) by mouth 2 (two) times a day. 180 each 1 11/09/2024 5 nicotine polacrilex (NICORETTE) [address] 1 each (4 mg total) into mouth between cheek and gum if needed for smoking cessation. 100 each 2 11/09/2024 5 nicotine (NICODERM CQ) 21 mg/[address] 1 patch on the skin 1 (one) time each day at the same time. 30 each 2 11/09/2024 5 documented in this encounter Progress Notes * Paola Hua MD - 11/09/2024 1:45 PM EST Images from the original note were not included. Patient Education Bladder Training: Care Instructions Your Care Instructions Bladder training is used to treat urge incontinence and stress incontinence. Urge incontinence means that the need to urinate comes on so fast that you can't get to a toilet in time. Stress incontinence means that you leak urine because of pressure on your bladder. For example, it may happen when you laugh, cough, or lift something heavy. Bladder training can increase how long you can wait before you have to urinate. It can also help your bladder hold more urine. And it can give you better control over the urge to urinate. It is important to remember that bladder training takes a few weeks to a few months to make a difference. You may not see results right away, but don't give up. Follow-up care is a wu part of your treatment and safety. Be sure to make and go to all appointments, and call your doctor if you are having problems. It's also a good idea to know your test resultsand keep a list of the medicines you take. How can you care for yourself at home? Work with your doctor to come up with a bladder training program that is right for you. You may useone or more of the following methods. Delayed urination In the beginning, try to keep from urinating for 5 minutes after you first feel the need to go. While you wait, take deep, slow breaths to relax. Kegel exercises can also help you delay the need to go to the bathroom. After some practice, when you can easily wait 5 minutes to urinate, try to wait 10 minutes before you urinate. Slowly increase the waiting period until you are able to control when you have to urinate. Scheduled urination Empty your bladder when you first wake up in the morning. Schedule times throughout the day when you will urinate. Start by going to the bathroom every hour, even if you don't need to go. Slowly increase the time between trips to the bathroom. When you have found a schedule that works well for you, keep doing it. If you wake up during the night and have to urinate, do it. Apply your schedule to waking hours only. Kegel exercises These tighten and strengthen pelvic muscles, which can help you control the flow of urine. (If doing these exercises causes pain, stop doing them and talk with your doctor.) To do Kegel exercises: Squeeze your muscles as if you were trying not to pass gas. Or squeeze your muscles as if you were stopping the flow of urine. Your belly, legs, and buttocks shouldn't move. Hold the squeeze for 3 seconds, then relax for 5 to 10 seconds. Start with 3 seconds, then add 1 second each week until you are able to squeeze for 10 seconds. Repeat the exercise 10 times a session. Do 3 to 8 sessions a day. When should you call for help? Watch closely for changes in your health, and be sure to contact your doctor if: Your incontinence is getting worse. You do not get better as expected. Where can you learn more? Scan the CareParent code or Go to https://www.Anomo/Sensorlychart Enter V684 in the search box to learn more about Bladder Training: Care Instructions. Current as of: August 27, 2023 Content Version: 14.2 ?? 2023 Eayun. Care instructions adapted under license by your healthcare professional. If you have questions about a medical condition or this instruction, always ask your healthcare professional. [employer] disclaims any warranty or liability for your use of this information. Patient Education Gastroesophageal Reflux Disease (GERD): Care Instructions Overview Gastroesophageal reflux disease (GERD) is the backward flow of stomach acid into the esophagus. Theesophagus is the tube that leads from your throat to your stomach. A one-way valve prevents the stomach acid from backing up into this tube. But when you have GERD, this valve does not close tightly enough. This can also cause pain and inflammation in your esophagus. (This is called esophagitis.) You may also hear GERD called acid reflux. If you have mild GERD symptoms including heartburn, you may be able to control the problem with antacids or iysm-rut-jkxfuew medicine. You can also make lifestyle changes to help reduce your symptoms. These include changing your diet and eating habits, such as not eating close to bedtime and staying at a weight that's healthy for you. Follow-up care is a wu part of your treatment and safety. Be sure to make and go to all appointments, and call your doctor if you are having problems. It's also a good idea to know your test resultsand keep a list of the medicines you take. How can you care for yourself at home? Take your medicines exactly as prescribed. Call your doctor if you think you are having a problem with your medicine. Your doctor may recommend jron-vlx-jylsgse medicine. For mild or occasional indigestion, antacids, such as Tums, Mylanta, or Maalox, may help. Your doctor also may recommend ckmn-bwg-iubvuud acid reducers, such as famotidine (Pepcid AC), cimetidine (Tagamet HB), or omeprazole (Prilosec). Read and follow all instructions on the label. If you use these medicines often, talk with your doctor. Stay at a weight that's healthy for you. Extra weight puts a lot of pressure on the valve between the stomach and esophagus. Losing even a few pounds can help. Talk to your doctor if you need help losing weight. Change your eating habits. Try to eat several small meals instead of two or three large meals. After you eat, wait 2 to 3 hours before you lie down. Snacking close to bedtime can make your symptoms worse. Avoid foods that make your symptoms worse. These may include chocolate, mint, alcohol, pepper, spicy foods, high-fat foods, or drinks with caffeine in them, such as tea, coffee, ramírez, or energy drinks. If your symptoms are worse after you eat a certain food, you may want to stop eating it to see if your symptoms get better. Try to quit smoking or chewing tobacco, or cut back as much as you can. If you need help quitting, talk to your doctor about quit-tobacco programs and medicines. These can increase your chances of quitting for good. If you have GERD symptoms while trying to sleep, raise the head of your bed 6 to 8 inches by putting the frame on blocks or placing a foam wedge under the head of your mattress. (Adding extra pillowsdoes not work.) Do not wear tight clothing around your middle. When should you call for help? Call 911 anytime you think you may need emergency care. For example, call if: You passed out (lost consciousness). Call your doctor now or seek immediate medical care if: You have new or worse belly pain. Your stools are black and tarlike or have streaks of blood. You vomit blood. Watch closely for changes in your health, and be sure to contact your doctor if: Your symptoms have not improved after 2 weeks. Food seems to catch in your throat or chest. Where can you learn more? Scan the QR code or Go to https://www.Ethical Ocean.net/duongcarmine Enter T927 in the search box to learn more about Gastroesophageal Reflux Disease (GERD): Care Instructions. Current as of: July 31, 2023 Content Version: 14.2 ?? 2023 Eayun. Care instructions adapted under license by your healthcare professional. If you have questions about a medical condition or this instruction, always ask your healthcare professional. [employer] disclaims any warranty or liability for your use of this information. Quitting Smoking Quitting smoking is the most important step you can take to improve your health. We're glad you have set a goal to improve your health. Quit Smoking Resources In addition to medications, use the STAR plan to help you successfully quit. Stick with your quit date! Tell friends, family, and coworkers your quit date. Request their understanding and support. Anticipate and prepare for challenges. Some examples are withdrawal symptoms, being around others who smoke, and drinking alcohol. Remove all tobacco products and paraphernalia from your environment. Make your home and vehicles smoke-free. Free resources for additional support: National tobacco quitline: 2-104-XNLN-NOW ( ). SmokefreeTXT is a free text program to assist you in quitting. Visit https://www.smokefree.gov/smokefreetxt for more information. * Paola Hua MD - 11/09/2024 1:45 PM EST CHIEF COMPLAINT: Establish Care IDENTIFIER: Cristela Oro is a 69 y.o. old female. History of Present Illness 69-year-old female presents for initial visit and follow-up of asthma, COPD, smoking cessation, GERD, stress urinary incontinence, and health maintenance. Asthma and COPD - Diagnosed with asthma and COPD - On albuterol inhaler, Serevent Diskus, and Striverdi Respimat - Smokes one pack/day since age 18, with cravings within 30 minutes of waking - Previously tried nicotine patches without success, has not tried Chantix - Reports persistent cough disrupting sleep and causing shortness of breath, unrelieved by Mucinex DM - Underwent lung cancer screening last year GERD - History of reflux - On omeprazole for over 5 years Stress Urinary Incontinence - Experiences urinary incontinence, especially when coughing or sneezing - Not recently taking prescribed medication Supplemental information: Had a mammogram last year, undergoes yearly. Colonoscopy in June or July last year was normal. Partial hysterectomy and 3 C-sections, last child born in 1985. Single, 3 children, completed high school, lives alone, does home care, has a cat, tries to walk for exercise, does not go to a gym, drinks alcohol occasionally, no recreational drugs, not currently sexually active. History of asthma, COPD, allergic rhinitis, urinary incontinence, high cholesterol. Gallbladder removed laparoscopically about 20 years ago. SOCIAL HISTORY Smokes one pack/day since age 18. Drinks alcohol occasionally. No recreational drugs. Single, 3 children, completed high school, lives alone, does home care, has a cat, tries to walk for exercise, does not go to a gym. FAMILY HISTORY Mother of stomach cancer, had diabetes. Father of heart failure, was a smoker and drinker. One sister of bone cancer, another has diabetes, another has COPD and smokes. One brother hadcancer. Unsure about maternal and paternal grandparents' medical history. MEDICATIONS Current: albuterol inhaler, Serevent Diskus, Striverdi Respimat, omeprazole ROS: As per HPI GENERAL: No malaise, significant weight loss or fever HEENT: No changes in hearing or vision, nose bleeds or other nasal problems NECK: No lumps, goiter, pain or significant neck swelling RESPIRATORY: No cough, wheezing or shortness of breath CARDIOVASCULAR: No chest pain, leg swelling or palpitations BREAST: No lumps, discharge, pain or change in skin GI: No abdominal discomfort, blood in stools or black stools : No dysuria, frequency or incontinence LACQUER SPRAYER: No abnormal vaginal bleeding or abnormal vaginal discharge. MUSCULOSKELETAL: No joint pain or swelling, back pain, or muscle pain. SKIN: No lesions, rash or itching PSYCH: No sleep disturbance, mood disorder or recent psychosocial stressors. HEMATOLOGY/LYMPHOLOGY No prolonged bleeding, easy bruisability or swollen nodes ENDOCRINE: No cold or heat intolerance, polyuria, polydipsia or goiter. NEURO: No persistent headache, syncope, seizures, weakness or numbness The remainder of the review of systems is noncontributory PAST MEDICAL HISTORY: Patient Active Problem List Diagnosis Date Noted Moderate persistent asthma 11/09/2024 Mixed hyperlipidemia 11/09/2024 Allergic rhinitis 11/09/2024 Chronic obstructive pulmonary disease (CMS/HCC) 11/09/2024 Smoking 11/09/2024 Urinary incontinence 11/09/2024 Past Surgical History: Procedure Laterality Date SECTION N/A 1985 x 3 with kids CHOLECYSTECTOMY N/A 2004 SOCIAL HISTORY: Social History Tobacco Use Smoking status: Every Day Current packs/day: 1.00 Average packs/day: 1 pack/day for 52.1 years (52.1 ttl pk-yrs) Types: Cigarettes Start date: 1972 Smokeless tobacco: Never Substance Use Topics Alcohol use: Yes Comment: occ FAMILY HISTORY: Family History Problem Relation Name Age of Onset Stomach cancer Mother Diabetes Mother Heart failure Father Alcohol abuse Father Other (smoker) Father Diabetes Sister Bone cancer Sister COPD Sister Other (smoker) Sister Stomach cancer Brother Family Status Relation Name Status Mother Father Sister Alive Sister Sister Alive Sister Alive Sister Alive Sister Alive Brother (Not Specified) MGM MGF PGM PGF No partnership data on file MEDICATIONS DISCONTINUED/REORDERED: Medications Discontinued During This Encounter Medication Reason omeprazole (PriLOSEC) [address] capsule Dose adjustment ACTIVE MEDICATIONS: Outpatient Medications Marked as Taking for the 11/09/24 encounter (Office Visit) with Paola Hua MD Medication Sig Dispense Refill albuterol HFA (PROAIR HFA ; PROVENTIL HFA ; VENTOLIN HFA) 90 mcg/actuation inhaler Inhale 2 puffs by mouth every 4 (four) hours if needed. atorvastatin (LIPITOR) 10 mg tablet Take 1 tablet (10 mg total) by mouth at bedtime. fluticasone propionate (FLONASE) 50 mcg/actuation nasal spray Administer 2 sprays into each nostril2 (two) times a day. Serevent Diskus 50 mcg/dose diskus inhaler Inhale 1 puff by mouth 2 (two) times a day. Striverdi Respimat 2.5 mcg/actuation inhaler Inhale 2 puffs by mouth 1 (one) time each day. [DISCONTINUED] omeprazole (PriLOSEC) [address] capsule Take 1 capsule (20 mg total) by mouth 1 (one)time each day. Do not crush or chew. ALLERGIES: Allergies Allergen Reactions Cipro [Ciprofloxacin Hcl] PHYSICAL EXAM: Visit Vitals BP 98/60 Pulse 91 Temp 35.6 ??C (96 ??F) (Temporal) Ht 1.549 m (61 ) Wt 68 kg (150 lb) SpO2 96% BMI 28.34 kg/m?? Smoking Status Every Day BSA 1.67 m?? Physical Exam General Appearance: well appearing and not on acute distress HEENT: Normocephalic. External ears normal. Nose normal. Mucous membranes are moist. Oropharynx is clear. Eyes: Conjunctivae normal. Respiratory: mild crackles, no wheeze Cardiovascular: regular, no murmur Gastrointestinal: Bowel sounds present. Genitourinary: - Lymphatic: - Back, Musculoskeletal: Normal range of motion. Normal cervical range of motion and neck supple. Extremities: No leg swelling. Skin: Warm and dry, no rash. Neurological: Alert. Psychiatric: - Other observations: - LABS/IMAGING: Abstract on 10/18/2024 Component Date Value Ref Range Status Gonorrhea/Chlamydia Screening 09/04/2004 Abstracted Final Annual BMP Blood Test 10/26/2004 Abstracted Final LDL/HDL Ratio 07/10/2004 3 5 Final Triglycerides 07/10/2004 76 150 mg/dL Final Cholesterol 07/10/2004 248 (A) 200 mg/dL Final HDL 07/10/2004 79 40 mg/dL Final LDL Cholesterol 07/10/2004 154 (A) 100 mg/dL Final Results IMPRESSION: 1. Adult general medical examination 2. Moderate persistent asthma, unspecified whether complicated 3. Mixed hyperlipidemia 4. Allergic rhinitis, unspecified seasonality, unspecified trigger 5. Chronic obstructive pulmonary disease, unspecified COPD type (CMS/[facility]) 6. Smoking 7. Vitamin D deficiency 8. Encounter for lipid screening for cardiovascular disease 9. Other abnormal glucose 10. Other fatigue 11. Urinary incontinence, unspecified type 12. Tobacco dependency PLAN: Adult general medical examination (Primary) - CBC and differential; Future - Hemoglobin A1c; Future - Vitamin B12; Future - Comprehensive metabolic panel; Future - Lipid panel with reflex to direct LDL; Future - Vitamin D 25 hydroxy; Future - Thyroid stimulating hormone with reflex to free t4 and free t3; Future Moderate persistent asthma, unspecified whether complicated Mixed hyperlipidemia - Lipid panel with reflex to direct LDL; Future Allergic rhinitis, unspecified seasonality, unspecified trigger Chronic obstructive pulmonary disease, unspecified COPD type ([facility]) Smoking - Ambulatory referral to Thoracic Surgery; Future Vitamin D deficiency - Vitamin D 25 hydroxy; Future Encounter for lipid screening for cardiovascular disease Other abnormal glucose - Hemoglobin A1c; Future Other fatigue - CBC and differential; Future - Vitamin B12; Future - Thyroid stimulating hormone with reflex to free t4 and free t3; Future Urinary incontinence, unspecified type Tobacco dependency Other orders - nicotine (NICODERM CQ) 21 mg/24 hr; Place 1 patch on the skin 1 (one) time each day at the same time. Dispense: 30 each; Refill: 2 - nicotine polacrilex (NICORETTE) 4 mg gum; Place 1 each (4 mg total) into mouth between cheek and gum if needed for smoking cessation. Dispense: 100 each; Refill: 2 - famotidine (Pepcid) 40 mg tablet; Take 1 tablet (40 mg total) by mouth 2 (two) times a day. Dispense: 180 each; Refill: 1 Assessment & Plan 1. COPD: Continues to smoke, exacerbating condition. On albuterol inhaler, Serevent Diskus, Striverdi Respimat. - Advised to quit smoking - Prescribed nicotine patches (21 mg/24-hour) and nicotine gummies - Referred for lung cancer screening - Advised to avoid smoking environments and consider water vape 2. Asthma: On albuterol inhaler, Serevent Diskus, Striverdi Respimat. - Advised to continue medications and avoid smoking 3. GERD: On omeprazole for over 5 years, discontinued due to potential long-term side effects. - Prescribed famotidine 40 mg twice daily for 6 months - Advised dietary modifications. Instruction given about lifestyle changes 4. Stress Urinary Incontinence: - Advised Kegel exercises and bladder training - Referred to specialist 5. Health Maintenance: - Ordered routine lab work, including diabetes screening - Advised to continue annual mammograms and colonoscopies, ensure results are sent to clinic 6. Smoking Cessation: Desires to quit smoking due to persistent cough. - Advised to avoid smoking environments - Prescribed nicotine patches (21 mg/24-hour) and nicotine gummies - Will notify if additional support needed Follow-up - In 6 months for Medicare annual wellness visit PROCEDURE Colonoscopy in June or July last year was normal. Partial hysterectomy and 3 C-sections, last child born in 1985. Gallbladder removed laparoscopically about 20 years ago. I have obtained verbal consent from Cristela Oro prior to the recording. I have advised Lauren that she may refuse the recording and require the recording to be turned off at any time during this encounter. Advised the patient to call me if any problems. Patient understands the plan. Patient is in agreement with the plan. Paola Hua MD on 11/09/2024 at 4:46 PM EST Tobacco Counseling The patient smokes cigarettes and desires to quit. We created the following quit plan: Prescribed the following medications: nicotine patch and nicotine gum. documented in this encounter Plan of Treatment Upcoming Encounters Date Type Department Care Team (Late st Contact Info) Description 12/21/2024 10:00 AM EDT Clinical Support Lung Screening Program - [place] [address] [facility] [address] [place] [id number] 12/21/2024 10:30 AM EDT Appointment [facility] CT Scan [address] [place] [id number] 05/10/2025 2:30 PM EDT Office Visit Internal Medicine - [place] [address] [facility] [address] [place] [id number] Paola Hua MD 175 [facility] [address] [place] [address] Scheduled Orders Name Type Priority Associated Diagnoses Orde r Schedule CBC and differential Lab Routine Adult general medical examination Other fatigue Expected: 11/09/2024, Expires: 11/09/2025 Hemoglobin A1c Lab Routine Adult general medical examination Other abnormal glucose Expected: 11/09/2024, Expires: 11/09/2025 Vitamin B12 Lab Routine Adult general medical examination Other fatigue 1 Occurrences starting 11/09/2024 until 11/09/2025 Comprehensive metabolic panel Lab Routine Adult general medical examination Expected: 11/09/2024, Expires: 11/09/2025 Lipid panel with reflex to direct LDL Lab Routine Adult general medical examination Mixed hyperlipidemia 1 Occurrences starting 11/09/2024 until 11/09/2025 Vitamin D 25 hydroxy Lab Routine Adult general medical examination Vitamin D deficiency 1 Occurrences starting 11/09/2024 until 11/09/2025 Thyroid stimulating hormone with reflex to free t4 and free t3 Lab Routine Adult general medical examination Other fatigue 1 Occurrences starting 11/09/2024 until 11/09/2025 Scheduled Referrals Name Type Priority Associated Diagnoses Order Schedule Ambulatory referral to Thoracic Surgery Outpatient Referral Routine Smoking 1 Occurrences starting 11/09/2024 until 11/09/2025 documented as of this encounter Visit Diagnoses Diagnosis Adult general medical examination- Primary Unspecified general medical examination Moderate persistent asthma, unspecified whether complicated Mixed hyperlipidemia Allergic rhinitis, unspecified seasonality, unspecified trigger Chronic obstructive pulmonary disease, unspecified COPD type ([facility]) Smoking Tobacco use disorder Vitamin D deficiency Encounter for lipid screening for cardiovascular disease Other abnormal glucose Other fatigue Urinary incontinence, unspecified type Tobacco dependency Tobacco use disorder documented in this encounter Discontinued Medications Medication Sig Discontinue Reason Start Date End Da te omeprazole (PriLOSEC) [address] capsule Take 1 capsule (20 mg total) by mouth 1 (one) time each day. Do not crush or chew. Dose adjustment 11/09/2024 documented as of this encounter Historical Medications * This list may reflect changes made after this encounter. atorvastatin (LIPITOR) 10 mg tablet Take 1 tablet (10 mg total) by mouth at bedtime. Striverdi Respimat 2.5 mcg/actuation inhaler Inhale 2 puffs by mouth 1 (one) time each day. 09/21/2024 Serevent Diskus 50 mcg/dose diskus inhaler Inhale 1 puff by mouth 2 (two) times a day. 06/29/2024 fluticasone propionate (FLONASE) 50 mcg/actuation nasal spray Administer 2 sprays into each nostril 2 (two) times a day. 06/24/2024 albuterol HFA (PROAIR HFA ; PROVENTIL HFA ; VENTOLIN HFA) 90 mcg/actuation inhaler Inhale 2 puffs by mouth every 4 (four) hours if needed. 02/05/2024 omeprazole (PriLOSEC) [address] capsule Take 1 capsule (20 mg total) by mouth 1 (one) time each day. Do not crush or chew. 5 added in this encounter Care Teams Bicycle Repair Technician Relationship Specialty Start Date End Date Paola Hua MD [address] [place] [address] PCP - General Internal Medicine 10/15/24 documented as of this encounter
--- OUTSIDE RECORDS SUMMARY | 2024-12-01 11:52 | XMS_ITS | Encounter Summary ---
Author Organization [facility] Address [address] [place] [address] Care Team Providers Care Concrete Pipe Machine Operator Name Role Phone Paola Hua MD Primary Care Provider [phone] Encounter Details Date Type Department Care Team (Late Contact Info) Description 11/05/2024 Telephone Internal Medicine - [place] 175 [facility] [address] [place] [phone] Paola Hua MD [address] [address] Social History Tobacco Use Types Packs/Day Years Used Date Smoking Tobacco: Never Assessed Comments Unknown Sex and Gender Information Value Date Recorded Sex Assigned at Not on file Legal Sex Female 2:10 PM EST Gender Identity Not on file Sexual Orientation Not on file documented as of this encounter Plan of Treatment Upcoming Encounters Date Type Department Care Team (Late Contact Info) Description 12/21/2024 10:00 AM EDT Clinical Support Lung Screening Program - [place] 299 [facility] [address] [place] [phone] 12/21/2024 10:30 AM EDT Appointment [facility] CT Scan [address] [place] [phone] 05/10/2025 2:30 PM EDT Office Visit Internal Medicine - [place] 175 [facility] [address] [place] [phone] Paola Hua MD 175 [facility] [address] [place] [address] documented as of this encounter Visit Diagnoses Not on filedocumented in this encounter Care Teams Concrete Pipe Machine Operator Relationship Specialty Start Date End Date Paola Hua MD [address] [place] [address] PCP - General Internal Medicine 10/15/24 documented as of this encounter
--- OUTSIDE RECORDS SUMMARY | 2024-12-01 11:52 | XMS_ITS | Encounter Summary ---
Author Organization [facility] Address [address] [place] [address] Care Team Providers Care Lining Stamper Name Role Phone Paola Hua MD Primary Care Provider [phone] Reason for Visit * Reason Onset Date Comments Appointment 11/03/2024 Encounter Details Date Type Department Care Team (Late Contact Info) Description 11/03/2024 Telephone Internal Medicine - [place] 175 [facility] [address] [place] [phone] Izabela Bonilla MA Appointment Social History Tobacco Use Types Packs/Day Years Used Date Smoking Tobacco: Never Assessed Comments Unknown Sex and Gender Information Value Date Recorded Sex Assigned at Not on file Legal Sex Female 2:10 PM EST Gender Identity Not on file Sexual Orientation Not on file documented as of this encounter Progress Notes * Izabela Bonilla MA - 11/03/2024 4:47 PM EST Called pt to reschedule appt for 11/05, n/a lvm to call back to reschedule. If pt calls back please reschedule appt for 11/05. Thank you ! documented in this encounter Plan of Treatment Upcoming Encounters Date Type Department Care Team (Late Contact Info) Description 12/21/2024 10:00 AM EDT Clinical Support Lung Screening Program - [place] 299 [facility] [address] [place] [phone] 12/21/2024 10:30 AM EDT Appointment [facility] CT Scan [address] [place] [phone] 05/10/2025 2:30 PM EDT Office Visit Internal Medicine - [address] [address] Paola Hua MD [address] [address] documented as of this encounter Visit Diagnoses Not on filedocumented in this encounter Care Teams Lining Stamper Relationship Specialty Start Date End Date Paola Hua MD [address] [place] [address] PCP - General Internal Medicine 10/15/24 documented as of this encounter
--- OUTSIDE RECORDS SUMMARY | 2024-12-01 11:52 | XMS_ITS | Clinical Summary ---
Author Organization 175 [facility] Address 175 [place] [address] Phone Care Team Providers Care Sericulture Teacher Name Role Phone Paola Hua MD Primary Care Provider [phone] Allergies Active Allergy Reactions Criticality Noted Date Comments Ciprofloxacin Hcl 11/09/2024 Medications albuterol HFA (PROAIR HFA ; PROVENTIL HFA ; VENTOLIN HFA) 90 mcg/actuation inhaler Inhale 2 puffs by mouth every 4 (four) hours if needed. 4 Active fluticasone propionate (FLONASE) 50 mcg/actuation nasal spray Administer 2 sprays into each nostril 2 (two) times a day. 4 Active Serevent Diskus 50 mcg/dose diskus inhaler Inhale 1 puff by mouth 2 (two) times a day. 4 Active Striverdi Respimat 2.5 mcg/actuation inhaler Inhale 2 puffs by mouth 1 (one) time each day. 4 Active atorvastatin (LIPITOR) 10 mg tablet Take 1 tablet (10 mg total) by mouth at bedtime. Active nicotine (NICODERM CQ) 21 mg/[address] 1 patch on the skin 1 (one) time each day at the same time. 30 each 2 5 02/08/20 25 Active nicotine polacrilex (NICORETTE) [address] 1 each (4 mg total) into mouth between cheek and gum if needed for smoking cessation. 100 each 2 5 02/08/20 25 Active famotidine (Pepcid) 40 mg tablet Take 1 tablet (40 mg total) by mouth 2 (two) times a day. 180 each 1 05/08/20 25 Active omeprazole (PriLOSEC) [address] capsule Take 1 capsule (20 mg total) by mouth 1 (one) time each day. Do not crush or chew. 11/09/19 25 Discontinu ed(Dose adjustment ) Active Problems Problem Noted Date Diagnosed Date Moderate persistent asthma 11/09/2024 Mixed hyperlipidemia 11/09/2024 Allergic rhinitis 11/09/2024 Chronic obstructive pulmonary disease 11/09/2024 Smoking 11/09/2024 Urinary incontinence 11/09/2024 Encounters Date Type Department Care Team Description 11/09/2024 1:45 PM EST Office Visit Internal Medicine - [place] 175 [facility] [address] [place] [phone] Paola Hua MD Adult general medical examination (Primary Dx); Moderate persistent asthma, unspecified whether complicated; Mixed hyperlipidemia; Allergic rhinitis, unspecified seasonality, unspecified trigger; Chronic obstructive pulmonary disease, unspecified COPD type ([facility]); Smoking; Vitamin D deficiency; Encounter for lipid screening for cardiovascular disease; Other abnormal glucose; Other fatigue; Urinary incontinence, unspecified type; Tobacco dependency 11/05/2024 Telephone Internal Medicine - [place] 175 [facility] [address] [place] [phone] Paola Hua MD 11/03/2024 Telephone Internal Medicine - [place] 175 [facility] [address] [place] [phone] Izabela Bonilla MA Appointment from Last 3 Months Immunizations Name Administration Dates Next Due Td Tetanus diptheria (Tdvax) 7yo and older 07/10 Surgical History Surgery Date Site/Laterality Comments CHOLECYSTECTOMY 10/13/2004 - 10/12/2005 N/A SECTION 10/13/1985 - 10/12/1986 N/A x 3 with kids Medical History Medical History Date Comments Moderate persistent asthma 11/09/2024 Chronic obstructive pulmonary disease (CMS/HCC) 11/09/2024 Allergic rhinitis 11/09/2024 Urinary incontinence 11/09/2024 Mixed hyperlipidemia 11/09/2024 Smoking 11/09/2024 Family History Medical History Relation Name Comments Stomach cancer Brother Alcohol abuse Father Heart failure Father smoker Father Diabetes Mother Stomach cancer Mother Diabetes Sister 1 Bone cancer Sister 2 COPD Sister 3 smoker Sister 3 Relation Name Status Comments Brother Father Maternal Grandfather Maternal Grandmother Mother Paternal Grandfather Paternal Grandmother Sister 1 Alive Sister 2 Sister 3 Alive Sister 4 Alive Sister 5 Alive Sister 6 Alive Social History Tobacco Use Types Packs/Day Years [...] on file Sexual Orientation Not on file Obstetrics History Last Filed Vital Signs Vital Sign Reading [...] Mass Index 28.34 11/09/2024 1:56 PM EST Plan of Treatment Upcoming Encounters Date Type Department Care Team (Late st Contact Info) Description 12/21/2024 10:00 AM EDT Clinical Support Lung Screening Program - [place] 299 [facility] [address] [place] [phone] 12/21/2024 10:30 AM EDT Appointment [facility] CT Scan [address] [place] [phone] 05/10/2025 2:30 PM EDT Office Visit Internal Medicine - [place] 175 [facility] 200 [place] [phone] Paola Hua MD 175 [facility] 200 [place] [address] Health Maintenance Due Date Last Done Comments Breast Cancer Screening 1957 Hepatitis A Vaccines (1 of 2 - Risk 2-dose series) 1976 Pneumococcal Vaccine: 50+ Years (1 of 2 - PCV) 1976 Zoster Vaccines (1 of 2) 2007 RSV Immunization Patients 60+ Years Old (1 - Risk 60-74 years 1-dose series) 2017 DTaP,Tdap,and Td Vaccines (3 - Td or Tdap) 04/14/2023 04/14/2013, 07/10/2004 Cholesterol Screening (Lipid Panel) 10/15/2024 07/10/2004 Colorectal Cancer Screening: Colonoscopy 10/15/2024 Depression Screening 10/15/2024 Falls Risk Assessment 10/15/2024 Hepatitis C Screening 10/15/2024 Lung Cancer Screening (Low Dose CT) 10/15/2024 Medicare Annual Wellness Visit 10/15/2024 Osteoporosis Screening (Bone Density Screening) 10/15/2024 Social Influencers of Health Screening 10/15/2024 COVID-19 Vaccine Completed 08/27/2024, , 01/29/2021, Additional history exists Influenza Vaccine Completed 08/27/2024, , 07/07/2017 HIB Vaccines Aged Out No longer eligi ble based on patient's age to complete this topic HPV Vaccines Aged Out No longer eligi ble based on patient's age to complete this topic Hepatitis B Vaccines Aged Out No long er eligible based on patient's age to complete this topic IPV Vaccines Aged Out No longer eligi ble based on patient's age to complete this topic MMR Vaccines Aged Out No longer eligi ble based on patient's age to complete this topic Meningococcal ACWY Vaccine Aged Out N o longer eligible based on patient's age to complete this topic Meningococcal B Vacine Aged Out No lo nger eligible based on patient's age to complete this topic RSV Immunization Patients Under 20 months Aged Out No longer eligible based on patient's age to complete this topic Varicella Vaccines Aged Out No longer eligible based on patient's age to complete this topic Procedures Procedure Name Priority Date/Time Associated Diagnosis Comments LIPID PANEL Routine 07/10/2004 from Last 3 Months or Most Recently Relevant to Health Maintenance Results * (ABNORMAL) Lipid panel (07/10/2004) LDL/HDL Ratio 3 <=5 Triglycerides 76 <=150 mg/dL Cholesterol 248(A) <=200 mg/dL HDL 79 >=40 mg/dL LDL Cholesterol 154(A) <=100 mg/dL Blood Venous blood specimen / Unknown us Historical Provider LAB BLOOD ORDERABLES Lyudmila l Result from Last 3 Months or Most Recently Relevant to Health Maintenance Insurance [employer] Care Teams Sericulture Teacher Relationship Specialty Start Date End Date Paola Hua MD [address] [place] [address] [address] [place] [address] PCP - General Internal Medicine 10/15/24
== END 2024-12-01 11:53 | disposition home or self-care (01) ==
PROVIDERS: PCP Internal Medicine; Visit Provider Internal Medicine
DX: J44.9 Chronic obstructive pulmonary disease, unspecified (principal); F17.200 Nicotine dependence, unspecified, uncomplicated; R05.9 Cough, unspecified; J30.9 Allergic rhinitis, unspecified
CPT/HCPCS: 99213

== ENCOUNTER → 2024-12-01 11:04 | Outpatient (BNVA) | payer OTHER, SELFPAY | PROVIDERS: PCP Internal Medicine; Visit Provider Internal Medicine | DX: J44.9 Chronic obstructive pulmonary disease, unspecified (principal); J30.9 Allergic rhinitis, unspecified; F17.210 Nicotine dependence, cigarettes, uncomplicated | CPT/HCPCS: 99212 ==

== ENCOUNTER 2025-06-01 10:50 | Outpatient (AMB) | payer OTHER, SELFPAY ==
--- OUTSIDE RECORDS SUMMARY | 2025-05-27 12:37 | XMS_ITS | Encounter Summary ---
Author Organization [facility] Address [address] [place] [address] Care Team Providers Care Optical Engineering Technician Name Role Phone Paola Hua MD Primary Care Provider [phone] Reason for Referral * Imaging (Routine) - Closed Specialty Diagnoses / Procedures Referred By Contac t Referred To Contact Radiology Diagnoses Medicare annual wellness visit, subsequent Postmenopausal state Procedures BD Bone Density DXA Axial Skeleton Paola Hua MD [address] [address] Phone: tel: fax: [address] [address] Phone: tel: Referral ID Status Reason Start Date Expiration Date Visits Re quested Visits Authorized [id number] Closed 05/10/2025 05/10/2026 1 1 Reason for Visit * Imaging (Routine) - Closed Specialty Diagnoses / Procedures Referred By Contac t Referred To Contact Radiology Diagnoses Medicare annual wellness visit, subsequent Postmenopausal state Procedures BD Bone Density DXA Axial Skeleton Paola Hua MD 175 [facility] [address] [place] [address] Phone: tel: fax: [address] [address] Phone: tel: Referral ID Status Reason Start Date Expiration Date Visits Re quested Visits Authorized [id number] Closed 05/10/2025 05/10/2026 1 1 Encounter Details Date Type Department Care Team (Latest Contact Info) Description 05/27/2025 12:37 PM EDT - 05/27/2025 11:59 PM EDT Hospital Encounter [facility] Bone Density [address] [place] [address] Medicare annual wellness visit, subsequent; Postmenopausal state Discharge Disposition: Home or Self Care Social History Tobacco Use Types Packs/Day Years Used Date Smoking Tobacco: Every Day Cigarettes 1 52.6 Started: 1970 Smokeless Tobacco: Never Alcohol Use Standard Drinks/Week Comments Yes 0 (1 standard drink = 0.6 oz pur e alcohol) occ Education Answer Date Recorded What is the highest level of school you have completed or the highest degree you have received? High school graduate 11/09/2024 Comments Unknown Sex and Gender Information Value Date Recorded Sex Assigned at Female 05/11/2025 2:38 PM EDT Legal Sex Female 2:10 PM EST Gender Identity Female 05/11/2025 2:38 PM EDT Sexual Orientation Straight 05/11/2025 2: 38 PM EDT documented as of this encounter Medications at Time of Discharge albuterol HFA (PROAIR HFA ; PROVENTIL HFA ; VENTOLIN HFA) 90 mcg/actuation inhaler Inhale 2 puffs by mouth every 4 (four) hours if needed. 02/05/2024 atorvastatin (LIPITOR) 10 mg tablet Take 1 tablet (10 mg total) by mouth at bedtime. 90 each 05/10/2025 calcium carbonate-vitami n D 500 mg-5 mcg (200 unit) per tablet Take 1 tablet by mouth 2 (two) times a day. 180 each 3 05/10/2025 fluticasone propionate (FLONASE) 50 mcg/actuation nasal spray Administer 2 sprays into each nostril 2 (two) times a day. 16 g 2 05/10/2025 Serevent Diskus 50 mcg/dose diskus inhaler Inhale 1 puff by mouth 2 (two) times a day. 06/29/2024 Striverdi Respimat 2.5 mcg/actuation inhaler Inhale 2 puffs by mouth 1 (one) time each day. 09/21/2024 documented as of this encounter Discharge Disposition Disposition Code Departure Means Destination Home or Self Care documented in this encounter Plan of Treatment Upcoming Encounters Date Type Department Care Team (Late st Contact Info) Description 10/24/2025 1:30 PM EST Office Visit Internal Medicine - [address] [place] [address] Paola Hua MD 175 [facility] 200 [place] [address] documented as of this encounter Procedures Procedure Name Priority Date/Time Associated Diagnosis Comments BD BONE DENSITY DXA AXIAL SKELETON Routine 05/27/2025 1:08 PM EDT Medicare annual wellness visit, subsequent Postmenopausal state documented in this encounter Results * BD Bone Density DXA Axial Skeleton (05/27/2025 1:08 PM EDT) Anatomical Region Laterality Modality Wrist, Hip, L-spine Bone Densito metry 05/30/2025 7:44 AM EDT Impressions 05/30/2025 7:45 AM EDT 1. Osteopenia. 2. FRAX analysis yields a 10-year probability of major osteoporotic fracture of 14.7% and a 10-year probability of hip fracture of 5.1%. Code 06077 -------- FINAL REPORT -------- Dictated By: Kishore Epperson Dictated Date: 05/30/2025 07:44 ET Assigned Physician: Kishore Epperson Reviewed and Electronically Signed By: Kishore Epperson Signed Date: 05/30/2025 07:45 ET Workstation ID: [id number] Transcribed By: Self Edit Transcribed Date: 05/30/2025 07:44 ET Narrative 05/30/2025 7:45 AM EDT HISTORY: The patient is a 70-year-old postmenopausal female with clinical concern for metabolic bone disease. FINDINGS: Dual energy x-ray absorptiometry of the lumbar spine and femurs is performed. The mean bone mineral density at L1-3 is 1.076 gm/cm2 which is 92% of that of young normals and 109% of that of age matched controls. This yields a T-score of -0.8 and a Z-score of 0.8 and there is therefore no evidence of osteoporosis or osteopenia here. The mean bone mineral density of the femurs bilaterally is 0.884 gm/cm2 which is 88% of that of young normals and 105% of that of age matched controls. This yields a T-score of -1.0 and a Z-score of 0.3 and there is therefore no evidence of osteoporosis or osteopenia here. However, the T-score of the right femoral neck is -2.4 and that of the left femoral neck is -1.9 which is diagnostic of osteopenia. Procedure Note Kishore Epperson MD - 05/30/2025 HISTORY: The patient is a 70-year-old postmenopausal female with clinicalconcern for metabolic bone disease. FINDINGS: Dual energy x-ray absorptiometry of the lumbar spine and femursis performed. The mean bone mineral density at L1-3 is 1.076 gm/cm2 whichis 92% of that of young normals and 109% of that of age matched controls.This yields a T-score of -0.8 and a Z-score of 0.8 and there is thereforeno evidence of osteoporosis or osteopenia here. The mean bone mineral density of the femurs bilaterally is 0.884 gm/go6hkguj is 88% of that of young normals and 105% of that of age matchedcontrols. This yields a T-score of -1.0 and a Z-score of 0.3 and there istherefore no evidence of osteoporosis or osteopenia here. However, theT-score of the right femoral neck is -2.4 and that of the left femoralneck is -1.9 which is diagnostic of osteopenia. IMPRESSION: 1. Osteopenia. 2. FRAX analysis yields a 10-year probability of major osteoporoticfracture of 14.7% and a 10-year probability of hip fracture of 5.1%. Code 96443 -------- FINAL REPORT -------- Dictated By: Kishore Epperson Dictated Date: 05/30/2025 07:44 ET Assigned Physician: Kishore Epperson Reviewed and Electronically Signed By: Kishore Epperson Signed Date: 05/30/2025 07:45 ET Workstation ID: [id number] Transcribed By: Self Edit Transcribed Date: 05/30/2025 07:44 ET Paola Hua MD IMG DXA PROCEDURES Final Result documented in this encounter Visit Diagnoses Diagnosis Medicare annual wellness visit, subsequent Postmenopausal state Asymptomatic postmenopausal status (age-related) (natural) documented in this encounter Additional Health Concerns Assessment Noted Time PHQ-9 Depression Total Score: 0 05/10/20 2:20 PM EDT documented as of this encounter Care Teams Optical Engineering Technician Relationship Specialty Start Date End Date Paola Hua MD [address] [place] [address] PCP - General Internal Medicine 10/15/24 documented as of this encounter
--- NOTE | 2025-06-01 11:00 | MHC.OFFVIS ---
Vital Signs 06/01/25 11:13 Height 5 ft 1 in Weight 151 lb 0.266 oz BMI 28.5 BP 102/64 Blood Pressure Location Lt brachial Position Sitting Pulse 65 Pulse Source Pulse Oximeter Pulse Oximetry (%) 98 Oxygen Delivery Method Room Air Intake Visit Reasons: COPD Intake Note: pt is here for follow up and states little cough, little tight in chest, scratchy throat. 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: No Allergies ciprofloxacin (From [facility]) Allergy (Intermediate, Verified 06/01/25 11:19) HIVES Medication List - Last Reconciled 06/01/25 by Mia Harmon MD atorvastatin 10 mg PO BEDTIME calcium carbonate-vitamin D3 600 mg-5 mcg (200 unit) 1 tab PO BID cetirizine (Zyrtec) 10 mg PO DAILY 90 days famotidine 40 mg PO BID fluticasone propionate 110 mcg/actuation (Flovent HFA) 2 puffs inhalation BID 30 days fluticasone propionate 50 mcg/actuation (Flonase Allergy Relief) 2 sprays intranasal DAILY 30 days montelukast 10 mg PO DAILY 30 days olodaterol 2.5 mcg/actuation (Striverdi Respimat) 2 inhalations inhalation DAILY 30 days trazodone 50 mg PO BEDTIME PRN 90 days Do you need a note to return to daycare/school/sports/work: No HPI HPI COPD: Details: 70 YEARS OLD FEMALE, [employer] SMO[employer]ER, STILL SMOKING 1 PACK OF CIGARETTES A DAY, COMES FOR ROUTINE FOLLOW-UP AFTER 6 MONTHS. SHE HAS FEATURES OF CHRONIC OBSTRUCTIVE PULMONARY DISEASE EVEN THOUGH PULMONARY FUNCTION TEST HAS BEEN RELATIVELY NORMAL. SHE IS ON FLOVENT -110 2 PUFFS B.I.D. AND STRIVERDI RESPIMAT 2.5 MCG 2 INHALATIONS DAILY. SHE DOES NOT HAVE MUCH WHEEZING BUT HAS ONGOING COUGH. SHE COMPLAINS SCRATCHY THROAT MOST OF THE TIMES. SHE HAS PERSISTENT NASAL CONGESTION WITH SOME POSTNASAL DISCHARGE. THE NASAL SYMPTOMS ARE NOT MUCH BETTER EVEN WITH THE USE OF, MONTELUKAST, FLONASE, USE OF ZYRTEC. SHE STILL SMOKES 1 PACK OF CIGARETTES A DAY . LAST LDCT WAS IN FEBRUARY 2024 , DID NOT HAVE A CT SCAN THIS YEAR, SHE INSISTS ON THAT SHE DID HAVE A CT SCAN BUT I DO NOT SEE ANY REPORT. [facility] Medical History Nicotine dependence, cigarettes, uncomplicated Allergic rhinitis Cough Shoulder pain, left COPD (chronic obstructive pulmonary disease) Difficulty sleeping Depression, major, recurrent Lipid disorder HLD (hyperlipidemia) Surgical History Hx of colonoscopy History of repair of laceration History of hysterectomy Hx of cholecystectomy Family History Father Myocardial infarction Mother Stomach cancer Son No problems noted. Daughter No problems noted. Daughter No problems noted. 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 Cognitive needs: No Hearing needs: No Vision needs: No Review of Systems Const All systems reviewed & are unremarkable except as noted in HPI and below Eyes Reports no additional complaints ENT Reports no additional complaints Card Denies chest pain, Denies irregular heart rhythm and Denies leg edema Resp Reports as per HPI GI Reports heartburn (Intermittent, controlled with omeprazole) Reports no additional complaints Musc Reports no additional complaints Skin/Breast Reports system reviewed and no additional complaints, except as documented Neuro Reports no additional complaints Psych Reports no additional complaints Physical Exam Vital Signs: Last Vital Signs Pulse 65 06/01/25 11:13 BP 102/64 06/01/25 11:13 Pulse Ox 98 06/01/25 11:13 Oxygen Delivery Method Room Air 06/01/25 11:13 BMI result Body Mass Index 28.5 Const General: healthy appearing, comfortable, no acute distress, alert and awake Orientation/consciousness: patient oriented x3 HEENT Head: Yes normal to inspection General nose exam: No nasal polyps present, No nasal discharge present and Other nasal findings present (MILD NASAL CONGESTION) Face and sinus: Yes sinuses nontender Mouth: oropharynx normal Throat: Yes posterior oropharynx normal Eyes General: appearance normal, both eyes and all related structures Neck Neck: Yes normal visual inspection, Yes no lymphadenopathy, Yes trachea midline and Yes no JVD Thyroid: Thyroid normal Chest Chest palpation & inspection: normal inspection of the chest, normal palpation of entire chest wall and no tenderness Resp Other: Percussion note resonant, has good breath sounds but distant on both sides, No wheezes rhonchi or crepitations are heard Cardio Palpation: normal PMI Rate: regular rate Rhythm: regular rhythm Heart sounds: no gallops and no murmurs GI Palpation (GI): Soft to palpation, nontender, No hepatosplenomegaly present and no masses Auscultation: normal bowel sounds Back/Spine/Pelvis Thoracic/Lumbar Spine: thoracic and lumbar spine normal to inspection Skin General skin exam: no rashes or lesions noted Neuro General: patient oriented x3 and no focal motor deficits Cranial nerves: Yes CN's II-XII intact bilaterally Extrem General: Yes normal to inspection, Yes no clubbing, cyanosis or edema and Yes no calf tenderness Psych Appearance: grossly normal and well kempt Speech and movement: Normal speech and movement present Office Procedures Spirometry Testing Spirometry 34473- Spirometry Results Reviewed Results Reviewed: SPIROMETRY IN OFFICE Assessment & Plan Assessment & Plan (1) Cough: Comment: HER COUGH IS DEFINITELY RELATED TO ALLERGIC RHINITIS/ COPD AND ONGOING SMOKING. IT IS CHRONIC AND NOT ANY WORSE THAN BEFORE Code(s): R05.9 - Cough, unspecified Category: Medical Plan: SHE MUST STOP SMOKING BEFORE THE COUGH WILL . STOP MAY USE ROBITUSSIN 2 TSP T.I.D. (2) Allergic rhinitis: Comment: CHRONIC ALLERGIC RHINITIS, AROUND THE YEAR, SYMPTOMS ARE WORSE IN SPRING AND SUMMER ONLY PARTIALLY CONTROLLED WITH USE OF CURRENT REGIMEN. Code(s): J30.9 - Allergic rhinitis, unspecified Category: Medical Plan: ADVISED TO CONTINUE USING FLONASE-52 SPRAY IN EACH NOSTRIL DAILY CONTINUE MONTELUKAST 10 MG DAILY AND MAY USE FROZEN 10 MG ONCE A DAY P.R.N. (3) Nicotine dependence, cigarettes, uncomplicated: Comment: 1/2-3/4ppd x 50yrs, CURRENTLY SAY IS SHE IS SMOKING 1 PACK A DAY. Code(s): F17.210 - Nicotine dependence, cigarettes, uncomplicated Category: Medical Plan: AGAIN COUNSELED ABOUT QUITTING SMOKING, SHE IS NOT VERY MOTIVATED. DOES NOT WANT TO USE NICOTINE PATCH OR LOZENGES. WILL TRY TO CUT DOWN THE NUMBER OF CIGARETTES ON HER OWN ADVISED TO CONTINUE HAVING ANNUAL LUNG SCREENING WITH LD CT (4) COPD (chronic obstructive pulmonary disease): Comment: 09/24/21 COPD IS REMAINING VERY STABLE WITHOUT ANY EXACERBATION. BOUTS OF COUGH ARE MORE DUE TO SMOKING. Code(s): J44.9 - Chronic obstructive pulmonary disease, unspecified Category: Medical Plan: CONTINUE FLOVENT-1102 PUFFS B.I.D. STRIVERDI RESPIMAT 2.5 MCG 2 INHALATIONS DAILY ALBUTEROL HFA 2 PUFFS Q 6 HOURS P.R.N. Orders: Orders AMB Spirometry Testing Today J44.9 - Chronic obstructive pulmonary disease, unspecified Coding Level of Care Code Est Pt Level 3 (67542) Diagnoses Cough R05.9 Allergic rhinitis J30.9 Nicotine dependence, cigarettes, uncomplicated F17.210 COPD (chronic obstructive pulmonary disease) J44.9 CPT Codes Spirometry - CPT: 37411- Spirometry ([id number])
[2025-06-01 11:13] VITALS: BP 102/64; PULSE 65; O2SAT 98; BMI 28.5
== END 2025-06-01 11:46 | disposition home or self-care (01) ==
PROVIDERS: PCP Internal Medicine; Visit Provider Internal Medicine
DX: R05.9 Cough, unspecified (principal); J30.9 Allergic rhinitis, unspecified; F17.210 Nicotine dependence, cigarettes, uncomplicated; J44.9 Chronic obstructive pulmonary disease, unspecified
CPT/HCPCS: 94010; 99213

== ENCOUNTER → 2025-06-01 10:50 | Outpatient (BNVA) | payer OTHER, SELFPAY | PROVIDERS: PCP Internal Medicine; Visit Provider Internal Medicine | DX: J44.9 Chronic obstructive pulmonary disease, unspecified (principal); R05.9 Cough, unspecified; J30.9 Allergic rhinitis, unspecified; F17.210 Nicotine dependence, cigarettes, uncomplicated | CPT/HCPCS: 94010; 99212 ==

== ENCOUNTER 2025-06-15 07:26 | Outpatient (REF) | payer OTHER, SELFPAY ==
--- NOTE | ~2025-06-15 | MM_ITS ---
EXAMINATION: MM SCREENING DIGITAL BREAST TOMOSYNTHESIS, BILATERAL CLINICAL INFORMATION: Screening. Asymptomatic. COMPARISON: Mammography: Comparison is made with available priors TECHNIQUE: Digital breast mammography with tomosynthesis is performed in both the craniocaudal and mediolateral oblique views along with computer-aided detection (CAD). FINDINGS: There are scattered areas of fibroglandular density (ACR BI-RADS breast composition Category b). There are no significant masses, abnormal calcifications, or other abnormalities. MM/MM tomosynthesis screening BI IMPRESSION: No mammographic evidence of malignancy. ASSESSMENT: BI-RADS BI-RADS 1 - Negative RECOMMENDATION: Routine annual mammography screening. 1 year F/U This examination should not preclude the clinical evaluation of a suspicious palpable abnormality. This patient's information was entered into a reminder system with a target due date for their next mammogram. Electronically signed by: Shirley Paniagua DO 06/17/2025 02:05 PM EDT
--- OUTSIDE RECORDS SUMMARY | 2025-06-15 07:29 | XMS_ITS | Clinical Summary ---
Author Organization [facility] Address [address] [place] [address] Phone Care Team Providers Care Internet Marketing Coordinator Name Role Phone Paola Hua MD Primary Care Provider [phone] Allergies Active Allergy Reactions Criticality Noted Date Comments Ciprofloxacin Hcl 11/09/2024 Medications albuterol HFA (PROAIR HFA ; PROVENTIL HFA ; VENTOLIN HFA) 90 mcg/actuation inhaler Inhale 2 puffs by mouth every 4 (four) hours if needed. 4 Active Serevent Diskus 50 mcg/dose diskus inhaler Inhale 1 puff by mouth 2 (two) times a day. 4 Active Striverdi Respimat 2.5 mcg/actuation inhaler Inhale 2 puffs by mouth 1 (one) time each day. 4 Active nicotine (NICODERM CQ) 21 mg/[address] 1 patch on the skin 1 (one) time each day at the same time. 30 each 2 5 Active nicotine polacrilex (NICORETTE) [address] 1 each (4 mg total) into mouth between cheek and gum if needed for smoking cessation. 100 each 2 5 Active fluticasone propionate (FLONASE) 50 mcg/actuation nasal spray Administer 2 sprays into each nostril 2 (two) times a day. 16 g 2 5 Active atorvastatin (LIPITOR) 10 mg tablet Take 1 tablet (10 mg total) by mouth at bedtime. 90 each 5 08/08/20 25 Active calcium carbonate-vitam in D 500 mg-5 mcg (200 unit) per tablet Take 1 tablet by mouth 2 (two) times a day. 180 each 3 5 05/10/20 26 Active Active Problems Problem Noted Date Diagnosed Date Moderate persistent asthma 11/09/2024 Mixed hyperlipidemia 11/09/2024 Allergic rhinitis 11/09/2024 Chronic obstructive pulmonar y disease ([facility] V24, [facility] V28) 11/09/2024 Smoking greater than 30 pack years 11/09/2024 Urinary incontinence 11/09/2024 Encounters Date Type Department Care Team Description 05/27/2025 12:37 PM EDT - 05/27/2025 11:59 PM EDT Hospital Encounter [facility] Bone Density [address] [place] [address] Medicare annual wellness visit, subsequent; Postmenopausal state Discharge Disposition: Home or Self Care 05/10/2025 2:30 PM EDT Office Visit Internal Medicine - [place] [address] [facility] [address] [place] [address] Paola Hua MD Medicare annual wellness visit, subsequent (Primary Dx); Mixed hyperlipidemia; Moderate persistent asthma without complication; Chronic obstructive pulmonary disease, unspecified COPD type ([facility] V24, [facility] V28); Smoking greater than 30 pack years; Routine general medical examination at a health care facility; Encounter for screening mammogram for malignant neoplasm of breast; Other fatigue; Vitamin D deficiency; Other abnormal glucose; Postmenopausal state; Snoring; Skin mole; Sleep apnea, unspecified type from Last 3 Months Immunizations Name Administration Dates Next Due Pneumococcal conjugate 20 va lent (Prevnar 20, PCV 20) 2mo and older 05/10/2025 Td Tetanus diptheria (Tdvax) 7yo and older 07/10 Tdap Tetanus diptheria acell ular pertussis (Boostrix; Adacel) 7yo and older 05/10/2025 Surgical History Surgery Date Site/Laterality Comments CHOLECYSTECTOMY 10/13/2004 - 10/12/2005 N/A SECTION 10/13/1985 - 10/12/1986 N/A x 3 with kids Medical History Medical History Date Comments Moderate persistent asthma 11/09/2024 Chronic obstructive pulmonary disease ([facility] V 24, [facility] V28) 11/09/2024 Allergic rhinitis 11/09/2024 Urinary incontinence 11/09/2024 [...] Date Smoking Tobacco: Every Day Cigarettes 1 52.7 Started: 1972 Smokeless Tobacco: Never Tobacco Cessation:Ready [...] Orientation Straight 05/11/2025 2: 38 PM EDT Obstetrics History Last Filed Vital Signs Vital Sign Reading Time Taken Comments Blood Pressure 104/70 05/10/2025 2:21 PM EDT Pulse 80 05/10/2025 2:21 PM EDT Temperature 36.8 C (98.3 F) 05/10/2025 2:21 PM EDT Respiratory Rate - - Oxygen Saturation 96% 05/10/2025 2:21 PM EDT Inhaled Oxygen Concentration - - Weight 67.1 kg (148 lb) 05/10/2025 2:21 PM EDT Height 154.9 cm (5' 1 ) 05/10/2025 2:21 PM EDT Body Mass Index 27.96 05/10/2025 2:21 PM EDT Plan of Treatment Upcoming Encounters Date Type Department Care Team (Late st Contact Info) Description 10/24/2025 1:30 PM EST Office Visit Internal Medicine - [address] [place] [address] Paola Hua MD Formerly named [facility] [place] [address] Health Maintenance Due Date Last Done Comments Breast Cancer Screening 1955 Zoster Vaccines (1 of 2) 2007 RSV Immunization Adult Patients (1 - Risk 60-74 years 1-dose series) 2017 Colorectal Cancer Screening: Colonoscopy 10/15/2024 Hepatitis C Screening 10/15/2024 COVID-19 Vaccine ( season) 2025 08/27/2024, 09/25/2021, 01/29/2021, Additional history exists Influenza Vaccine (#1) 2025 , 06/22/2023, 07/07/2017 Lung Cancer Screening (Low Dose CT) 03/03/2026 03/03/2025 Falls Risk Assessment 05/10/2026 05/10/2025 Medicare Annual Wellness Visit 05/10/2026 05/10/2025 Social Influencers of Health Screening 05/10/2026 05/10/2025 Cholesterol Screening (Lipid Panel) 05/23/2030 05/23/2025, 12/06/2024, 07/10/2004 DTaP,Tdap,and Td Vaccines (4 - Td or Tdap) 05/10/2035 05/10/2025, 04/14/2013, 07/10/2004 Osteoporosis Screening (Bone Density Screening) 05/27/2035 05/27/2025 Depression Screening Completed 05/10/2025 Pneumococcal Vaccine: 50+ Years Completed 05/10/2025 HIB Vaccines Aged Out No longer eligi ble based on patient's age to complete this topic HPV Vaccines Aged Out No longer eligi ble based on patient's age to complete this topic Hepatitis A Vaccines Aged Out No long er eligible [...] age to complete this topic Meningococcal B Vaccine Aged Out No l onger eligible based on patient's age to complete [...] Medicare annual wellness visit, subsequent Postmenopausal state CBC WITH AUTO DIFFERENTIAL Routine 05/23/2025 12:42 PM EDT Medicare annual wellness visit, subsequent Other fatigue HIV 1, 2 ANTIBODY, P24 ANTIGEN WITH REFLEX TO DIFFERENTIATION Routine 05/23/2025 12:42 PM EDT Medicare annual wellness visit, subsequent THYROID STIMULATING HORMONE WITH REFLEX TO FREE T4 AND FREE T3 Routine 05/23/2025 12:42 PM EDT Medicare annual wellness visit, subsequent Other fatigue VITAMIN D 25 HYDROXY Routine 05/23/2025 12:42 PM EDT Medicare annual wellness visit, subsequent Vitamin D deficiency LIPID PANEL WITH REFLEX TO DIRECT LDL Routine 05/23/2025 12:42 PM EDT Medicare annual wellness visit, subsequent Mixed hyperlipidemia COMPREHENSIVE METABOLIC PANEL Routine 05/23/2025 12:42 PM EDT Medicare annual wellness visit, subsequent Other fatigue VITAMIN B12 Routine 05/23/2025 12:42 PM EDT Medicare annual wellness visit, subsequent Other fatigue HEMOGLOBIN A1C Routine 05/23/2025 12:42 PM EDT Medicare annual wellness visit, subsequent Other abnormal glucose CBC AND DIFFERENTIAL Routine 05/23/2025 12:42 PM EDT Medicare annual wellness visit, subsequent Other fatigue CT LUNG SCREENING Routine 03/03/2025 11: 39 AM EDT Encounter for screening for malignant neoplasm of respiratory organs Nicotine dependence, cigarettes, uncomplicated from Last 3 Months or Most Recently Relevant to Health Maintenance Results * BD Bone Density DXA Axial Skeleton (05/27/2025 1:08 PM EDT) Anatomical Region Laterality Modality Wrist, Hip, L-spine Bone Densito metry 05/30/2025 7:44 AM EDT Impressions 05/30/2025 7:45 AM EDT 1. Osteopenia. 2. FRAX analysis yields a 10-year probability of major osteoporotic fracture of 14.7% and a 10-year probability of hip fracture of 5.1%. Code 88007 -------- FINAL REPORT -------- Dictated By: Kishore Epperson Dictated Date: 05/30/2025 07:44 ET Assigned Physician: Kishore Epperson Reviewed and Electronically Signed By: Kishore Epperson Signed Date: 05/30/2025 07:45 ET Workstation ID: [id number] Transcribed By: Self Edit Transcribed Date: 05/30/2025 [...] density of the femurs bilaterally is 0.884 gm/[id number] is 88% of that of young normals [...] probability of hip fracture of 5.1%. Code 81879 -------- FINAL REPORT -------- Dictated By: Kishore Epperson Dictated Date: 05/30/2025 07:44 ET Assigned Physician: Kishore Epperson Reviewed and Electronically Signed By: Kishore Epperson Signed Date: 05/30/2025 07:45 ET Workstation ID: [id number] Transcribed By: Self Edit Transcribed Date: 05/30/2025 07:44 ET Paola Hua MD [facility] DXA PROCEDURES Final Result * HIV 1,2 antibody, p24 antigen with reflex to differentiation (05/23/2025 12:42 PM EDT) HIV Combo AB/AG Negative Negative LAB CHEMISTRY METHOD 05/23/2025 9:45 PM EDT [facility] Blood Venous blood specimen / Unknown Venipuncture / Unknown 05/23/2025 12:42 PM EDT 05/23/2025 12:42 PM EDT Narrative [facility] - 05/23/2025 9:45 PM EDT This assay is a 4th generation assay allowing for earlier detection of HIV infection by detecting the presence of the HIV-1 p24 antigen as well as the traditional antibodies to HIV type 1 (including group O) and type 2. Use of a 4th generation assay is the current CDC recommendation for HIV screening. Paola Hua MD LAB BLOOD ORDERABLES Final Resul t Performing Organization Address City/[facility]/ZIP Co de Phone Number [facility] [address] [place] [address], [place] [phone] * Thyroid stimulating hormone with reflex to free t4 and free t3 (05/23/2025 12:42 PM EDT) Pathologist [facility] TSH 0.96 0.40 - 4.00 mcIU/mL LAB CHEMISTRY METHOD 05/23/2025 8:04 PM EDT [facility] Blood Venous blood specimen / Unknown Venipuncture / Unknown 05/23/2025 12:42 PM EDT 05/23/2025 12:42 PM EDT Paola Hua MD LAB BLOOD ORDERABLES Final Resul t Performing Organization Address [facility] de Phone Number [facility] [address] [place] [address], [place] [phone] * Lipid panel with reflex to direct LDL (05/23/2025 12:42 PM EDT) Cholesterol 156 0 - 200 mg/dL LAB CHEMISTRY METHOD 05/23/2025 7:59 PM EDT [facility] Triglycerides 107 0 - 150 mg/dL LAB CHEMISTRY METHOD 05/23/2025 7:59 PM EDT [facility] HDL 65 >=40 mg/dL LAB CHEMISTRY METHOD 05/23/2025 7:59 PM EDT [facility] LDL Calculated 70 0 - 100 mg/dL LAB CHEMISTRY METHOD 05/23/2025 7:59 PM EDT [facility] Comment:Estimated LDL Calcul ated using equation: Total cholesterol - HDL cholesterol - (Triglycerides/5) VLDL Cholesterol Arvind 21.4 mg/dL LAB CHEMISTRY METHOD 05/23/2025 7:59 PM EDT [facility] Non HDL Chol. (LDL+VLDL) 91 <145 mg/dL LAB CHEMISTRY METHOD 05/23/2025 7:59 PM EDT [facility] Chol/HDL Ratio 2.4 0.0 - 4.4 LAB CHEMISTRY METHOD 05/23/2025 7:59 PM EDT [facility] Blood Venous blood specimen / Unknown Venipuncture / Unknown 05/23/2025 12:42 PM EDT 05/23/2025 12:42 PM EDT Paola Hua MD LAB BLOOD ORDERABLES Final Resul t [facility] [address] [place] [address], [place] [phone] * CBC auto differential (05/23/2025 12:42 PM EDT) WBC 9.6 4.8 - 10.8 K/mcL LAB HEMETOLOGY METHOD 05/23/2025 2:15 PM EDT [facility] RBC 4.50 3.80 - 4.80 M/mcL LAB HEMETOLOGY METHOD 05/23/2025 2:15 PM EDT [facility] Hemoglobin 14.0 11.5 - 16.0 g/dL LAB HEMETOLOGY METHOD 05/23/2025 2:15 PM EDT [facility] Hematocrit 42.3 35.0 - 47.0 % LAB HEMETOLOGY METHOD 05/23/2025 2:15 PM EDT [facility] MCV 94.8 79.0 - 98.0 FL LAB HEMETOLOGY METHOD 05/23[facility]2025 [facility] MCH 31.4 27.0 - 32.0 pcg LAB HEMETOLOGY METHOD 05/23/2025 2:15 PM EDT [facility] MCHC 33.1 32.0 - 37.0 g/dL LAB HEMETOLOGY METHOD 05/23/2025 2:15 PM EDT [facility] RDW 12.8 11.0 - 15.0 % LAB HEMETOLOGY METHOD 05/23/2025 2:15 PM EDT [facility] Platelets 303 130 - 400 K/mcL LAB HEMETOLOGY METHOD 05/23/2025 2:15 PM T [facility] MPV 11.0 7.0 - 11.0 FL LAB HEMETOLOGY METHOD 05/23/2025 2:[facility] NRBC 0.0 <1.0 % LAB HEMETOLOGY METHOD 05/23/2025 2:15 PM EDT [facility] NRBC Absolute 0.00 <0.10 K/mcL LAB HEMETOLOGY METHOD 05/23/2025 2:15 PM [facility] Neutrophils Relative 66.8 % LAB HEMETOLOGY METHOD 05/23/2025 2:15 PM [facility] Lymphocytes Relative 23.8 % LAB HEMETOLOGY METHOD 05/23/2025 2:15 PM EDT [facility] Monocytes Relative 7.6 % LAB HEMETOLOGY METHOD 05/23/2025 2:15 PM T [facility] Eosinophils Relative 1.1 % LAB HEMETOLOGY METHOD 05/23/2025 2:15 PM EDT [facility] Basophils Relative 0.4 % LAB HEMETOLOGY METHOD 05/23/2025 2:15 PM [facility] Immature Granulocytes Relative 0.3 % LAB HEMETOLOGY METHOD 05/23/2025 2:15 PM EDT [facility] Neutrophils Absolute 6.40 1.50 - 7.00 K/mcL LAB HEMETOLOGY METHOD 05/23/2025 2:15 PM EDT [facility] Lymphocytes Absolute 2.28 1.00 - 5.00 K/mcL LAB HEMETOLOGY METHOD 05/23/2025 2:15 PM EDT [facility] Monocytes Absolute 0.73 0.20 - 1.00 K/mcL LAB HEMETOLOGY METHOD 05/23/2025 2:15 PM EDT [facility] Eosinophils Absolute 0.11 0.00 - 0.50 K/mcL LAB HEMETOLOGY METHOD 05/23/2025 2:15 PM EDT [facility] Basophils Absolute 0.04 0.00 - 0.20 K/mcL LAB HEMETOLOGY METHOD 05/23/2025 2:15 PM EDT [facility] Immature Granulocytes Absolute 0.03 0.00 - 0.03 K/mcL LAB HEMETOLOGY METHOD 05/23/2025 2:15 PM EDT [facility] Blood Venous blood specimen / Unknown Venipuncture / Unknown 05/23/2025 12:42 PM EDT 05/23/2025 12:42 PM EDT Paola Hua MD LAB BLOOD ORDERABLES Final Resul t [facility] [address] [place] [address], * Vitamin D 25 hydroxy (05/23/2025 12:42 PM EDT) Vit D, 25-Hydroxy 58.4 30.0 - 80.0 ng/mL LAB CHEMISTRY METHOD 05/23/2025 8:04 PM EDT [facility] Blood Venous blood specimen / Unknown Venipuncture / Unknown 05/23/2025 12:42 PM EDT 05/23/2025 12:42 PM EDT us Paola Hua MD LAB BLOOD ORDERABLES Final Resul t [facility] [address] [place] [address], [place] [phone] * Hemoglobin A1c (05/23/2025 12:42 PM EDT) [facility] Hemoglobin A1C 5.9 <6.5 % LAB CHEMISTRY METHOD 05/23/2025 5:16 PM EDT [facility] Mean Bld Glu Estim. 123 mg/dL LAB CHEMISTRY METHOD 05/23/2025 5:16 PM EDT [facility] Blood Venous blood specimen / Unknown Venipuncture / Unknown 05/23/2025 12:42 PM EDT 05/23/2025 12:42 PM EDT us Paola Hua MD LAB BLOOD ORDERABLES Final Resul t Performing Organization Address City/[facility]/ZIP Co de Phone Number [facility] [address] [place] [address], [place] [phone] * Vitamin B12 (05/23/2025 12:42 PM EDT) [facility] Vitamin B-12 383 250 - 900 pcg/mL LAB CHEMISTRY METHOD 05/23/2025 7:59 PM EDT [facility] Blood Venous blood specimen / Unknown Venipuncture / Unknown 05/23/2025 12:42 PM EDT 05/23/2025 12:42 PM EDT us Paola Hua MD LAB BLOOD ORDERABLES Final Resul t Performing Organization Address City/[facility]/ZIP Co de Phone Number [facility] [address] [place] [address], [place] [phone] * Comprehensive metabolic panel (05/23/2025 12:42 PM EDT) Sodium 140 133 - 145 mmol/L LAB CHEMISTRY METHOD 05/23/2025 7:59 PM [facility] Potassium 4.8 3.5 - 5.5 mmol/L LAB CHEMISTRY METHOD 05/23/2025 7:59 PM [facility] Chloride 107 96 - 110 mmol/L LAB CHEMISTRY METHOD 05/23/2025 7:59 PM [facility] CO2 29 21 - 32 mmol/L LAB CHEMISTRY METHOD 05/23/2025 7:59 PM [facility] Anion Gap 4 3 - 11 LAB CHEMISTRY METHOD 05/23/2025 7:59 PM [facility] Glucose 79 70 - 100 mg/dL LAB CHEMISTRY METHOD 05/23/2025 7:59 PM [facility] BUN 13 5 - 25 mg/dL LAB CHEMISTRY METHOD 05/23/2025 7:59 PM [facility] Creatinine 0.94 0.50 - 1.10 mg/dL LAB CHEMISTRY METHOD 05/23/2025 7:59 PM [facility] eGFR 66 >=60 mL/min/1. 73m2 LAB CHEMISTRY METHOD 05/23/2025 7:59 PM [facility] Comment:Calculation based on the Chronic Kidney Disease Epidemiology Collaboration (CKD-EPI) equation refit without adjustment for race. BUN/Creatinine Ratio 13.8 LAB CHEMISTRY METHOD 05/23/2025 7:59 PM [facility] Calcium 9.1 8.5 - 10.5 mg/dL LAB CHEMISTRY METHOD 05/23/2025 7:59 PM [facility] AST (SGOT) 21 10 - 42 unit/L LAB CHEMISTRY METHOD 05/23/2025 7:59 PM [facility] ALT (SGPT) 31 10 - 60 unit/L LAB CHEMISTRY METHOD 05/23/2025 7:59 PM [facility] Alkaline Phosphatase 80 42 - 121 unit/L LAB CHEMISTRY METHOD 05/23/2025 7:59 PM EDT [facility] Total Protein 7.0 6.0 - 8.0 g/dL LAB CHEMISTRY METHOD 05/23/2025 7:59 PM EDT [facility] Albumin 4.0 3.2 - 5.0 g/dL LAB CHEMISTRY METHOD 05/23/2025 7:59 PM EDT [facility] Total Bilirubin 0.5 0.0 - 1.4 mg/dL LAB CHEMISTRY METHOD 05/23/2025 7:59 PM EDT [facility] Blood Venous blood specimen / Unknown Venipuncture / Unknown 05/23/2025 12:42 PM EDT 05/23/2025 12:42 PM EDT Paola Hua MD LAB BLOOD ORDERABLES Final Resul t [facility] [address] [place] [address], * CT Lung Screening (03/03/2025 11:39 AM EDT) Anatomical Region Laterality Modality Chest Computed Tomogra phy 03/04/2025 5:12 AM EDT Impressions 03/04/2025 5:21 AM EDT No suspicious pulmonary nodules Lung RADS 2: Benign Appearance or Behavior - Continue annual screening with LDCT in 12 months. -------- FINAL REPORT -------- Dictated By: Kalpana Laurent Dictated Date: 03/04/2025 05:12 ET Assigned Physician: Kalpana Laurent Reviewed and Electronically Signed By: Kalpana Laurent Signed Date: 03/04/2025 05:21 ET Workstation ID: [id number] Transcribed By: Self Edit Transcribed Date: 03/04/2025 05:12 ET Narrative 03/04/2025 5:21 AM EDT Indication: Greater than 20 total pack-year smoking history, asymptomatic current smoker Technique: Low-dose CT scan of the chest obtained as a lung cancer screening study. Multiplanar reformatted images were obtained. Dose reduction technique: ASIR (Adaptive statistical iterative reconstruction) and/or AEC (automated exposure control) DLP: 176.30 mGy-cm COMPARISON: No prior imaging available for comparison. FINDINGS: Lack of intravenous contrast limits evaluation of the karyn, vascular structures and visualized abdominal viscera. Lungs/airways: Trachea and central airways are patent. Emphysematous changes. Biapical pleural-parenchymal scarring. Scattered pulmonary nodules. For example: 3 mm groundglass nodule left lung apex (series 3, image 47) 2 mm solid nodules in the right upper lobe (series 3, image 65, series 3, image 87) 4 mm groundglass nodule left upper lobe (series 3, image 100) Base of the neck, mediastinum, heart, chest wall, vessels: The assessment of hilar lymphadenopathy is difficult without the use of IV contrast. No enlarged mediastinal lymphadenopathy. Thoracic aortic and coronary artery calcifications. Upper abdomen: This study was performed without contrast and with lower than standard dose. These factors reduce the sensitivity for detection of small lesions in the upper abdomen. Status post cholecystectomy. Bones/soft tissues: Degenerative changes of the cervical spine Procedure Note Kalpana Laurent MD - 03/04/2025 Indication: Greater than 20 total pack-year smoking history, asymptomaticcurrent smoker Technique: Low-dose CT scan of the chest obtained as a lung cancerscreening study. Multiplanar reformatted images were obtained. Dosereduction technique: ASIR (Adaptive statistical iterative reconstruction)and/or AEC (automated exposure control) DLP: 176.30 mGy-cm COMPARISON: No prior imaging available for comparison. FINDINGS: Lack of intravenous contrast limits evaluation of the karyn,vascular structures and visualized abdominal viscera. Lungs/airways: Trachea and central airways are patent. Emphysematouschanges. Biapical pleural-parenchymal scarring. Scattered pulmonary nodules. For example: 3 mm groundglass nodule left lung apex (series 3, image 47) 2 mm solid nodules in the right upper lobe (series 3, image 65, series 3,image 87) 4 mm groundglass nodule left upper lobe (series 3, image 100) Base of the neck, mediastinum, heart, chest wall, vessels: The assessmentof hilar lymphadenopathy is difficult without the use of IV contrast. Noenlarged mediastinal lymphadenopathy. Thoracic aortic and coronary arterycalcifications. Upper abdomen: This study was performed without contrast and with lowerthan standard dose. These factors reduce the sensitivity for detection ofsmall lesions in the upper abdomen. Status post cholecystectomy. Bones/soft tissues: Degenerative changes of the cervical spine IMPRESSION: No suspicious pulmonary nodules Lung RADS 2: Benign Appearance or Behavior - Continue annual screeningwith LDCT in 12 months. -------- FINAL REPORT -------- Dictated By: Kalpana Laurent Dictated Date: 03/04/2025 05:12 ET Assigned Physician: Kalpana Laurent Reviewed and Electronically Signed By: Kalpana Laurent Signed Date: 03/04/2025 05:21 ET Workstation ID: [id number] Transcribed By: Self Edit Transcribed Date: 03/04/2025 05:12 ET us Vicente Villaseñor MD IMG CT PROCEDURES Final Result from Last 3 Months or Most Recently Relevant to Health Maintenance Insurance [employer]AGE Advance Directives * Full Code - Confirmed (Latest Code Status on File) Date Activated Date Inactivated Comments 05/10/2025 3:00 PM This code stat us was ascertained in the following way: Code status discussion: discussion with patient To update the patient's code status, place a code status order. Do not modify or discontinue any currently active code status orders. Care Teams Internet Marketing Coordinator Relationship Specialty Start Date End Date Paola Hua MD [address] [place] [phone] PCP - General Internal Medicine 10/15/24
== END 2025-06-15 07:27 | disposition home or self-care (01) ==
LOC: HO.MAMMO 07:26
PROVIDERS: Visit Provider Student in an Organized Health Care Education/Training Program
DX: Z12.31 Encounter for screening mammogram for malignant neoplasm of breast (principal)
CPT/HCPCS: 77063; 77067

== ENCOUNTER → 2025-06-15 07:30 | Outpatient (BNV) | payer OTHER, SELFPAY | PROVIDERS: Visit Provider Internal Medicine | DX: Z12.31 Encounter for screening mammogram for malignant neoplasm of breast (principal) | CPT/HCPCS: 77063; 77067 ==